=== PATIENT | male | born 1990 | race Two or more races ===

== ENCOUNTER 2024-05-26 02:42 | Inpatient (IN) | payer BC, SELFPAY ==
[2024-05-26] VITALS (7 sets, daily range): BP systolic 134–165; BP diastolic 80–93; PULSE 79–110; RESP 15–19; TEMP 36.7–37.7; O2SAT 96–99; BMI 34.7
--- NOTE | 2024-05-26 02:48 | EKG_ITS ---
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
--- NOTE | 2024-05-26 03:26 | XR_ITS ---
Examination: PA chest single view Technique: Upright PA chest single view Exam date and time: May 26, 2024 0332 hrs. Comparison June 02, 2018 Indications: Left-sided chest pain today. Findings: Left perihilar pneumonia Normal heart size The right lung is clear The osseous structures are intact Impression: Left perihilar pneumonia
[2024-05-26 04:01] LABS: Basophils # (Auto) 0.1 Thou/mm3 (0.0-0.2); Basophils % (Auto) 1 % (0-2.5); Eosinophils # (Auto) 0.2 Thou/mm3 (0.0-0.5); Eosinophils % (Auto) 1 % (0-10); Hematocrit 42.1 % (41.0-53.0); Hemoglobin 14.5 g/dL (13.5-16.0); Immature Granulocytes % (Auto) 1 % (0-0); Immature Granulocytes Auto 0.05 Thou/mm3 (0.00-0.00); Lymphocytes # (Auto) 1.7 Thou/mm3 (1.0-4.8); Lymphocytes % (Auto) 16 % (10-50); Mean Corpuscular HGB Conc 34.4 g/dl (31.0-37.0); Mean Corpuscular Hemoglobin 30.4 pg (25.0-35.0); Mean Corpuscular Volume 88 fL (80-100); Monocytes % (Auto) 9 % (0-12); Neutrophils % (Auto) 73 % (37-80); Nucleated Red Blood Cell % 0 /100 WBC (0); Platelet Count 217 Thou/mm3 (140-440); RDW Standard Deviation 42.7 fL (35.1-43.9); Red Blood Count 4.77 Miln/mm3 (4.50-5.90); White Blood Count 10.9 Thou/mm3 (3.8-10.6)
[2024-05-26 04:20] LABS: D-Dimer < 250 ng/mL (<600)
[2024-05-26 04:28] LABS: Amphetamine/Methamp Scrn,U Negative (Negative); Barbiturate Screen,Urine Negative (Negative); Benzodiazepines Screen,Urine Negative (Negative); Benzoylecgonine Screen, Ur Negative (Negative); Fentanyl Screen,Urine Negative (Negative); Opiate Screen,Urine Negative (Negative); THC Screen,Urine Negative (Negative)
[2024-05-26 04:32] LABS: Alanine Aminotransferase 26 U/L (10-49); Albumin/Globulin Ratio 1.8 (1.2-2.2); Alcohol, Blood Medical 10.4 mg/dL (0-10.0); Alkaline Phosphatase 93 U/L (46-116); Anion Gap 6 (7-16); Aspartate Amino Transferase 22 U/L (0-34); BUN/Creatinine Ratio 13 Ratio (12-20); Bilirubin,Total 0.3 mg/dL (0.3-1.2); Blood Urea Nitrogen 10 mg/dL (9-23); Calcium 9.7 mg/dL (8.3-10.6); Calcium (Corrected) 9.7 mg/dL (8.5-10.1); Carbon Dioxide 27.8 mMol/L (20.0-31.0); Chloride 105 mMol/L (98-107); Creatinine (Component) 0.8 mg/dL (0.6-1.3); Estimated Creatinine Clearance 156.5 mL/min (>60); Globulin 2.8 gm/dL (2.3-3.5); Glucose 100 mg/dL (74-106); Osmolality,Calculated 276 (275-295); Potassium 3.7 mMol/L (3.4-5.1); Sodium 139 mMol/L (136-145); Total Protein 7.8 gm/dL (5.7-8.2); Troponin I < 0.002 ng/mL (0.0-0.045); eGFR > 60 See Note
--- NOTE | 2024-05-26 04:35 | PD.EDRME ---
Rapid Medical Screening Exam RME Arrival date/time: 05/26/24 02:42 34M with history of alcohol use presents to ED with 30 min of CP and SOB. Patient aunt had an IL at <50 years of age so he got worried. Chief Complaint: Chest Pain Time Seen by Provider: 05/26/24 03:07 Vital signs: Vital Signs Temperature 99.8 F 05/26/24 02:49 Pulse Rate 110 H 05/26/24 02:49 Respiratory Rate 18 05/26/24 02:49 Blood Pressure 145/91 H 05/26/24 02:49 Pulse Oximetry (%) 96 05/26/24 02:49 Oxygen Delivery Method Room Air 05/26/24 02:49
--- NOTE | 2024-05-26 05:03 | PD.EDCHEST ---
ED Chest Pain RME/HPI General Chief Complaint: Chest Pain Stated Complaint: CHEST PAIN X40MIN Time Seen by Provider: 05/26/24 03:07 Arrival date/time: 05/26/24 02:42 Limitations: no limitations RME / HPI RME / HPI narrative: 05/26/24 02:42 34M with history of alcohol use presents to ED with 30 min of CP and SOB. Patient aunt had an WA at <50 years of age so he got worried. ---- Dr. Velasquez's Main ED Evaluation: 34yo male with a history of alcohol use presents to the ED for a chief complaint of left-sided chest pain. 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 He reports associated shortness of breath. Patient states he has a familial history of WA and was concerned, so he came in for evaluation. He denies any fever, chills or any other associated symptoms. Onset (ago): unknown Duration: constant Onset: other (Woke him from sleep) Pain location: left chest Severity: mild Severity scale (1-10): 7 Quality: tightness Pain radiation: none Relieving factors: nothing Exacerbating factors: nothing Context: recent illness Associated symptoms: nausea Related Data Allergies Allergy/AdvReac Type Severity Reaction Status Date / Time Penicillins Allergy Severe Rash Verified 05/26/24 02:44 Review of Systems Review of Systems Systems Reviewed: All systems reviewed, normal except as documented Past Medical History Past Medical History CARDIAC: Negative Cardiac Disorders or Congestive Heart Failure RESPIRATORY: Negative Chronic Obstructive Pulmonary Disease (COPD) or Asthma GENITOURINARY: Negative Renal Disease ENDOCRINE: Negative Diabetes Mellitus Type 1 or Diabetes Mellitus Type 2 HEMATOLOGIC: Negative Sickle Cell Disease Social History SMOKING STATUS: Light (< 1 pack/day) ED Exam General Limitations: Present no limitations General appearance: Present alert and in no apparent distress Head Head exam: Present atraumatic Eye Eye exam: Present normal appearance, PERRL and EOMI ENT ENT exam: Present normal exam, normal oropharynx and mucous membranes moist Neck Neck exam: Present normal inspection, full ROM and trachea midline Chest Chest inspection: Present normal inspection and symmetric chest wall rise Respiratory Respiratory exam: Present normal lung sounds bilaterally Cardiovascular Cardiovascular exam: Present regular rate, normal rhythm and normal heart sounds Abdominal Exam Abdominal exam: Present soft and normal bowel sounds Extremities Exam Extremities exam: Present normal inspection and full ROM Back Exam Back exam: Present normal inspection and full ROM Neurological Exam Neurological exam: Present alert, oriented X3 and CN II-XII intact Psychiatric Psychiatric exam: Present normal affect and normal mood Skin Skin exam: Present warm, dry, intact and normal color Course Course Course Narrative: CXR is ordered for determining the etiology of chest pain. Quality Measures none Orders Category Date Time Status CT Screening NOW Care 05/26/24 05:27 Active EKG (ED ONLY) *Do not use* NOW Care 05/26/24 02:[address] chest w con Stat Exams 05/26/24 05:27 Ordered EKG (ED Only) Stat Exams 05/26/24 02:48 Draft XR chest 1V portable Stat Exams 05/26/24 03:26 Taken Alcohol, Blood Medical Stat Lab 05/26/24 03:42 Completed CBC Stat Lab 05/26/24 03:42 Completed Comprehensive Metabolic Panel Stat Lab 05/26/24 03:42 Completed D-Dimer Stat Lab 05/26/24 03:42 Completed Drug Screen,Urine Stat Lab 05/26/24 03:30 Completed Troponin I Stat Lab 05/26/24 03:42 Completed Ketorolac Inj [Toradol Inj] Med 05/26/24 05:05 Discontinued 30 mg IM X1 ONE Vital Signs Vital signs: Vital Signs Temperature 99.8 F 05/26/24 02:49 Pulse Rate 110 H 05/26/24 02:49 Respiratory Rate 18 05/26/24 02:49 Blood Pressure 145/91 H 05/26/24 02:49 Pulse Oximetry (%) 96 05/26/24 02:49 Oxygen Delivery Method Room Air 05/26/24 02:49 Pulse ox is 96% on room air, which is normal according to my interpretation. Chest Pain MDM Narrative MDM Narrative:: Parental diagnosis includes atypical chest pain, pneumonia, PE, STEMI, non-STEMI, musculoskeletal. The patient had a D-dimer that is negative, initial troponin is negative. An EKG is reassuring. Heart rate slightly elevated at 110 however patient is tolerating p.o. Patient has previously been seen here in February for abnormal lymphadenopathy in the throat area with unknown etiology. CT chest to r/o possible CA. Troponin #2 is pending at 630. Patient data External records reviewed:: [facility] previous records (Per chart review, patient was seen here on 07/30/23 for lymphadenopathy.) Clinical information provided by:: patient Social determinants that could affect healthcare access:: alcohol use Patient has the following chronic illnesses:: none How is presenting disease/condition affected by chronic disease/condition?: no chronic disease Evaluation data The following diagnostics were reviewed and interpreted by me:: lab results, radiology exam(s) and EKG tracing(s) Lab and/or radiology exams considered but not ordered:: none Interpretation Summary: WBC count is slightly elevated at 10.9, CMP is normal, troponin is normal, UDS is negative, blood alcohol is 10.4, according to my interpretation. CXR shows poor inspiratory effort, haziness in the left base, no obvious pneumonia, no pleural effusions, increased perihilar infiltrate on the left, according to my interpretation. EKG done at 0256, sinus tachycardia, no ST elevations or depressions, QTc: 433, no previous EKG available for comparison, according to my interpretation. Medications / Prescriptions Medications or Prescriptions considered but not ordered:: none Medication administrations:: Medication Administration History Discontinued Medications Ketorolac Tromethamine (Ketorolac Inj 60 Mg/2 Ml Vial) 30 mg IM X1 ONE Stop: 05/26/24 05:06 Last Admin: 05/26/24 05:11 Dose: 30 mg Documented By: EE see above Consultations Consultation(s) initiated? (list below): No Diagnosis Chest Pain Differential Diagnosis: st elevation myocardial infarction, chest pain and other (PE, NSTEMI, musculoskeletal pain) Most likely diagnosis given after review of the tests above:: final dx pending at sign out Admission Indicated Admission indicated?: not indicated Admission Request Was there a request for admission?: No Disposition Plan Disposition Plan: other (specify) (Signed out to the next oncoming provider at [address] chest and repeat troponin.) Discharge Plan Plan Disposition Comment: Stable at sign out Prescriptions/Referrals Referrals: Thomas Alejandro MD [Primary Care Provider] - In 1 week Problem List Clinical Impression: Atypical chest pain Patient/Caregiver Discharge Instructions Print Language: Ukrainian
[2024-05-26] MEDS: KETOROLAC INJ 60 MG/2 ML VIAL 30 MG IM (05:11)
--- NOTE | 2024-05-26 05:27 | XR_ITS ---
Examination: CT chest with intravenous contrast 2-D sagittal and coronal reconstructions Exam date and time: May 26, 2024 0701 hrs. Indications: Chest pain shortness of breath onset today, history lymphadenopathy CTDI:vol (mGy) 15.3 DLP: (mGycm) 571 Technique: Multiple axial sections of the thorax have been obtained. Sections have been obtained, 3 mm slice thickness. Mediastinal and lung density settings have been obtained. Intravenous contrast administered, 60 cc Isovue-370. 2-D sagittal, coronal images obtained. Low dose protocols were performed. One or more of the following dose reduction techniques were used; automated exposure control, adjustment of the mA and/or KV according to patient size, use of iterative reconstruction technique. Findings: No thoracic aortic aneurysmal dilatation No pulmonary artery emboli on this non-CTA study 23 mm nodule left upper lobe with surrounding parenchymal disease 5 mm pulmonary nodule lingular segment, 2 mm pulmonary nodule lingular segment No pulmonary edema or pleural disease No pneumothorax No paratracheal tracheobronchial or bronchopulmonary adenopathy No visualized liver or splenic lesion Contracted gallbladder No pancreatic or adrenal mass Kidneys partially visualized no hydronephrosis Intact osseous structures Impression: 23 mm nodule left upper lobe with surrounding subtle parenchymal disease, subcentimeter nodules in the left lung Highest on the differential list is infectious processes including active tuberculosis
[2024-05-26 08:25] LABS: Procalcitonin 0.04 ng/ml (0.0-0.49)
--- NOTE | 2024-05-26 08:31 | EDNOTE_ITS ---
Emergency Room Addendum Addendum Narrative: 0600 Care assumed by previous shift provider. Past medical, surgical, social and family history reviewed. Vitals and home medications reviewed. Results and treatment plan discussed. I will assume the care of the patient at this time and will follow the patient, pending final disposition. HPI: Patient was awoken at 4:00 in the morning with pleuritic, sharp, left mid chest pain. He otherwise denies fevers chills or sweats. No night sweats or weight loss. Denies cough or shortness of breath. 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 GENERAL APPEARANCE: AxOx4, generally well-appearing, no acute distress. HEART: Normal rate and regular rhythm, normal S1/S1, no m/r/g LUNGS: CTAB, moving air well. No crackles or wheezes are heard. ABDOMEN: Soft, nontender, nondistended with good bowel sounds heard. NEUROLOGICAL: Grossly nonfocal. Alert and oriented, moving all 4 extremities. CN not formally tested but appear grossly intact. Observed to ambulate with normal gait. Skin: Warm and dry without any rash. CT scan shows a left upper lobe inflammatory nodule suggestive or concerning for active tuberculosis per the radiology. Details are in the note. 0800: Case is discussed with hospitalist service and agrees to admit for rule out tuberculosis. We will cover him for community-acquired pneumonia in the meantime while further tests are being.
--- NOTE | 2024-05-26 08:35 | PC.NURSE ---
Pt was placed in reverse isolation hepa filter in the room and all precautions in place, MD at bedside explained POC pt verbalized understanding
[2024-05-26] MEDS: DOXYCYCLINE 100 MG TABLET PO (08:42)
[2024-05-26] MEDS: cefTRIAXone/D5w 1gm IV premix 50 ML IV (08:43)
--- NOTE | 2024-05-26 09:08 | CHAP ---
Patient expressed gratitude for visit and prayer.
--- NOTE | 2024-05-26 10:49 | PC.NURSE ---
Tubellin med not available in ER pharmacy made aware
--- NOTE | 2024-05-26 13:21 | PC.NURSE ---
Patient complaining of chest pain 02/15. Called and informed hospitalist. Awaiting further orders.
--- NOTE | 2024-05-26 13:38 | ESHP_ITS ---
<Statement entered by Mine Singh MD - 05/26/24 15:28> Patient is 34 y.o male w/ significant PMHx who presented to the ED with sudden onset left-sided chest pain this AM and admitted for further management. 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 Patient also endorses smoking about 1-2 cigs/qweek for the last year intermittently. Chest CT was concerning for a 23 mm nodule in left upper lobe. Patient will be on IV Toradol Q6HR for the pleuritic chest pain. R/o TB via AFB samples Q8HR, Tuberculin skin test, Bcx pending. I discussed with and supervised the phd internship physician who took care of this patient. I personally saw and examined the patient and discussed the assessment and plan with the entire medicine team, including my attending , I agree with most of the assessment and plan as documented below Mine Singh M.D. PGY-2 Documentation for date of: 05/26/24 HPI History of Present Illness Chief complaint: Chest pain History of present illness: 34-year-old male with no significant past medical history presented to the ED after he experienced some chest pain around 2 AM on 05/26 which woke him up from his sleep. Patient states that the pain is in the middle of his chest and slightly to the left and he is never experienced such discomfort before. Patient states that the pain is worse when he takes deep breaths or makes any movements. Patient denies having any concerning cardiac symptoms such as palpitations, shortness of breath, orthopnea, paroxysmal nocturnal dyspnea, lower extremity edema or any new dizziness. Patient follows up with Dr. Alejandro outpatient and states that he does not take any medications; his blood pressure has been sporadically elevated in the clinic but he is only been told to change lifestyle modifications. Of note, patient had upper respiratory infection about a week ago which self resolved without any medications, his child who lives with him was also sick during that time. Patient denies traveling out of the state at this time and denies going hiking or camping out in the [place]. 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 Medical history: No significant history Surgical history: No significant history Allergies: He has been told that he has a penicillin allergy when he was a child, rash Medications: No prescribed medications Family history: Father has elevated blood pressure, maternal had an ID in her 50s (currently alive). 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 Pertinent lab findings include WBC of 10.9, D-dimer less than 250 (normal), troponin negative, urine toxicology negative, ethyl alcohol 10.4. EKG was sinus tachycardia with low voltage but no significant or concerning ST changes. Chest x-ray showed left perihilar pneumonia, CT of chest confirmed a 23 mm nodule in the left upper lobe. Patient will be admitted to the hospitalist team for pleuritic chest pain secondary to possible TB (has some risk factors such as working in custodial system) vs coccidiomycosis vs malignant neoplasm. Exam Vital Signs Temp Pulse Resp BP Pulse Ox O2 Del Method 98.6 F 102 H 16 141/89 H 99 Room Air 05/26/24 10:49 05/26/24 10:50 05/26/24 10:49 05/26/24 10:49 05/26/24 10:49 05/26/24 10:49 Narrative Exam Physical Exam: GENERAL: Awake, answering questions appropriately, appears stated age HEENT: NC/AT. Moist mucosa. PERRLA/EOMI. CARDIO: Heart RRR, no obvious murmurs, no JVD. PULM: No coughing or visible SOB. Lungs CTA B/L. GI: Abdomen soft, NT/ND, +BS. SKIN/MSK/EXT: No wounds/discoloration/rashes/edema/amputations. +Pedal pulses present B/L. NEURO: Oriented x3, construction site manager strength 5/5, Moves extremities x4. Results: Labs 05/26/24 03:42 05/26/24 03:42 Labs: Short CBC 05/26/24 Range/Units 03:42 WBC 10.9 H (3.8-10.6) Thou/mm3 Hgb 14.5 (13.5-16.0) g/dL Hct 42.1 (41.0-53.0) % Plt Count 217 (140-440) Thou/mm3 BMP 05/26/24 03:42 Sodium 139 Potassium 3.7 Chloride 105 Carbon Dioxide 27.8 BUN 10 Creatinine 0.8 Glucose 100 Calcium 9.7 Cardiac Enzymes 05/26/24 Range/Units 03:42 Troponin I < 0.002 (0.0-0.045) ng/mL Liver Function 05/26/24 Range/Units 03:42 Total Bilirubin 0.3 (0.3-1.2) mg/dL AST 22 (0-34) U/L ALT 26 (10-49) U/L Alkaline Phosphatase 93 (46-116) U/L Albumin 5.0 (3.5-5.0) gm/dL Quality Measures Quality Measures none Medications Home Medications and Allergies Home Medications ?Medication ?Instructions ?Recorded ?Confirmed ?Type No Known Home Medications 05/26/24 05/26/24 History Allergies Allergy/AdvReac Type Severity Reaction Status Date / Time Penicillins Allergy Severe Rash Verified 05/26/24 02:44 Visit Medications Acetaminophen (Acetaminophen 325 Mg Tablet) 650 mg PO Q6H PRN PRN Reason: PAIN SCALE 1-3 (mild Stop: 06/25/24 09:37 Ketorolac Tromethamine (Ketorolac Inj 30 Mg/Ml Vial) 30 mg IVP Q6H PRN PRN Reason: Pain 4-8 Stop: 05/31/24 13:30 Ondansetron HCl (Ondansetron Inj 2 Mg/Ml Inj 2 Ml) 4 mg IV Q6H PRN; Protocol PRN Reason: NAUSEA OR VOMITING Stop: 06/25/24 09:37 Sennosides (Senna Tablet) 1 tab PO QDAY PRN; Protocol PRN Reason: constipation Stop: 06/25/24 09:37 Discontinued Medications Doxycycline Hyclate (Doxycycline 100 Mg Tablet) 100 mg PO X1 ONE Stop: 05/26/24 08:07 Last Admin: 05/26/24 08:42 Dose: 100 mg Ceftriaxone Sodium/Dextrose (Rocephin/D5w 1gm Iv Premix) 50 mls @ 100 mls/hr IV X1 ONE Stop: 05/26/24 08:35 Last Infusion: 05/26/24 09:38 Dose: Infused Ketorolac Tromethamine (Ketorolac Inj 60 Mg/2 Ml Vial) 30 mg IM X1 ONE Stop: 05/26/24 05:06 Last Admin: 05/26/24 05:11 Dose: 30 mg Sodium Chloride (Sodium Chloride Rt 10% 15 Ml Nebu) 5 ml INH X1 ONE Stop: 05/26/24 09:41 Tuberculin PPD (Tuberculin Ppd Inj 5 Unit/0.1 Ml Dose) 5 unit ID X1 ONE Stop: 05/26/24 09:41 Assessment & Plan Plan 34-year-old male with no significant past medical history presenting after he experienced some chest pain will be admitted to the hospitalist team for pleuritic chest pain secondary to possible TB (has some risk factors such as working in custodial system) vs coccidiomycosis vs malignant neoplasm. #Pleuritic Chest Pain #Left perihilar PNA #Mild Leukocytosis #Tachycardia #Possible TB infection? #Possible Cocci infection? Patient presented with likely pleuritic chest pain; new finding which started on 05/26 at 2am Troponin negative, EKG with no concerning ST changes Initial chest x-ray showed left perihilar pneumonia Chest CT showed a 23 mm nodule in the left upper lobe; suspicious for possible active TB per radiology read Patient has mildly elevated WBC at 10.9, no fever, heart rate 90?110s likely secondary to pleuritic pain Patient was given x 1 dose of intramuscular Toradol 30 mg with pain being controlled She also was given x 1 dose of ceftriaxone and doxycycline in the ED Patient does have some risk factors for developing TB as 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 Fernández and senior resident Dr. Samantha Rice, PGY-1 Attending Provider Attestation/Addendum I have examined the patient, reviewed labs and imaging findings, discussed the case with the resident(s), and reviewed entered orders. I agree with the plan of care as outlined in this note, with these additional summaries/recommendations: Patient is a 34-year-old male with a medical history of tobacco use who presented to [facility] emergency department on 05/26/2024 with chief complaint of chest pain. CT of chest in the emergency room revealed 23 mm nodule left upper lobe with surrounding subtle parenchymal disease and subcentimeter nodules in the left lung suggestive of infectious process such as tuberculosis. Patient will be admitted for active TB rule out. Obtain AFB smears x 3 and PPD. Order cocci serology. Counseled on tobacco cessation and will give nicotine patch if patient develops withdrawal symptoms. Dr. Fernández
[2024-05-26 13:40] LABS: Cocci Serology, IgM Negative (Negative)
[2024-05-26] MEDS: KETOROLAC INJ 30 MG/ML VIAL IVP ×2 (16:07→22:30)
[2024-05-26] MEDS: TUBERCULIN PPD INJ 5 UNIT/0.1 ML DOSE ID (16:07)
[2024-05-26] MEDS: SODIUM CHLORIDE RT 10% 15 ML NEBU 5 ML INH (18:14)
[2024-05-26 19:53] LABS: Cult AFB Sendout- Sputum* See Sep Rpt
[2024-05-26] MEDS: ACETAMINOPHEN 325 MG TABLET 650 MG PO (20:51)
[2024-05-27] VITALS (8 sets, daily range): BP systolic 132–145; BP diastolic 83–89; PULSE 73–116; RESP 16–26; TEMP 36.1–36.9; O2SAT 93–99; BMI 34.7
[2024-05-27] MEDS: SODIUM CHLORIDE RT 10% 15 ML NEBU INH ×2 (02:24→11:00)
--- NOTE | 2024-05-27 02:43 | PC.RT ---
Pt after hypertonic tx produced an afb sample. This sample 2 of 3
[2024-05-27 03:00] LABS: Cult AFB Sendout- Sputum* See Sep Rpt
[2024-05-27] MEDS: KETOROLAC INJ 30 MG/ML VIAL IVP ×4 (04:14→23:32)
[2024-05-27 06:33] LABS: Basophils % (Auto) 0 % (0-2.5); Eosinophils # (Auto) 0.1 Thou/mm3 (0.0-0.5); Eosinophils % (Auto) 1 % (0-10); Hematocrit 42.5 % (41.0-53.0); Hemoglobin 14.6 g/dL (13.5-16.0); Immature Granulocytes % (Auto) 0 % (0-0); Immature Granulocytes Auto 0.04 Thou/mm3 (0.00-0.00); Lymphocytes # (Auto) 1.2 Thou/mm3 (1.0-4.8); Lymphocytes % (Auto) 11 % (10-50); Mean Corpuscular HGB Conc 34.4 g/dl (31.0-37.0); Mean Corpuscular Hemoglobin 30.2 pg (25.0-35.0); Mean Corpuscular Volume 88 fL (80-100); Monocytes # (Auto) 1.4 Thou/mm3 (0.0-0.8); Monocytes % (Auto) 12 % (0-12); Neutrophils # (Auto) 8.4 Thou/mm3 (1.8-7.7); Neutrophils % (Auto) 75 % (37-80); Nucleated Red Blood Cell % 0 /100 WBC (0); Platelet Count 188 Thou/mm3 (140-440); RDW Standard Deviation 42.8 fL (35.1-43.9); Red Blood Count 4.84 Miln/mm3 (4.50-5.90); White Blood Count 11.2 Thou/mm3 (3.8-10.6)
[2024-05-27 06:58] LABS: Prothrombin Time 10.9 Seconds (9.0-12.2)
[2024-05-27 07:11] LABS: Alanine Aminotransferase 22 U/L (10-49); Albumin, Serum 4.6 gm/dL (3.5-5.0); Albumin/Globulin Ratio 1.7 (1.2-2.2); Alkaline Phosphatase 77 U/L (46-116); Anion Gap 6 (7-16); Aspartate Amino Transferase 20 U/L (0-34); BUN/Creatinine Ratio 13 Ratio (12-20); Bilirubin,Total 0.7 mg/dL (0.3-1.2); Blood Urea Nitrogen 13 mg/dL (9-23); Calcium 9.5 mg/dL (8.3-10.6); Calcium (Corrected) 9.5 mg/dL (8.5-10.1); Carbon Dioxide 25.6 mMol/L (20.0-31.0); Cardiac Risk Estimate 2.6 RATIO (4.0-6.7); Chloride 107 mMol/L (98-107); Cholesterol 153 mg/dL (132-200); Estimated Creatinine Clearance 125.2 mL/min (>60); Globulin 2.7 gm/dL (2.3-3.5); Glucose 104 mg/dL (74-106); HDL Cholesterol 60 mg/dL (40-60); LDL Cholesterol,Calculated 73 mg/dL (0-130); Magnesium 2.2 mg/dL (1.6-2.6); Osmolality,Calculated 277 (275-295); Phosphorous 3.5 mg/dL (2.4-5.1); Potassium 4.2 mMol/L (3.4-5.1); Sodium 139 mMol/L (136-145); Thyroid Stimulating Hormone 1.96 uIU/mL (0.55-4.78); Total Protein 7.3 gm/dL (5.7-8.2); Triglycerides 98 mg/dL (30-150); eGFR > 60 See Note
--- NOTE | 2024-05-27 10:49 | PC.SS ---
Patient alert/oriented. Admitted for TB r/o. Patient is currently in isolation. He resides with family. Independent with ADL's. Employed with [employer]. Notes indicate that AFB were already sent out. Results pending. D/c plan remains to return home. PCP: Dr. Alejandro. is alt medical decision maker. Family to provide transportation upon discharge. No further d/c needs at this time.
[2024-05-27 11:53] LABS: Cult AFB Sendout- Sputum* See Sep Rpt
--- NOTE | 2024-05-27 13:06 | ESPR_ITS ---
<Statement entered by Mine Singh MD - 05/28/24 15:46> Patient seen and examined at bedside. Cocci IgM and IgG negative. AFB smears x 3 and PPD pending. Consider nicotine patch if patient has w/d symptoms. I discussed with and supervised the programming internship physician who took care of this patient. I personally saw and examined the patient and discussed the assessment and plan with the entire medicine team, including my attending Dr. Fernández, I agree with most of the assessment and plan as documented below Mine Singh M.D. PGY-2 Documentation for date of: 05/27/24 Subjective Subjective Interval history: 34-year-old male with no significant past medical history presented to the ED after he experienced some chest pain around 2 AM on 05/26 which woke him up from his sleep. Patient states that the pain is in the middle of his chest and slightly to the left and he is never experienced such discomfort before. Patient states that the pain is worse when he takes deep breaths or makes any movements. Patient denies having any concerning cardiac symptoms such as palpitations, shortness of breath, orthopnea, paroxysmal nocturnal dyspnea, lower extremity edema or any new dizziness. Patient follows up with Dr. Alejandro outpatient and states that he does not take any medications; his blood pressure has been sporadically elevated in the clinic but he is only been told to change lifestyle modifications. Of note, patient had upper respiratory infection about a week ago which self resolved without any medications, his child who lives with him was also sick during that time. Patient denies traveling out of the state at this time and denies going hiking or camping out in the [place]. 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 In the ED, patient presented hypertensive (145/91), tachycardic 110, respiratory rate 18, afebrile satting 96 on room air. Pertinent lab findings include WBC of 10.9, D-dimer less than 250 (normal), troponin negative, urine toxicology negative, ethyl alcohol 10.4. EKG was sinus tachycardia with low voltage but no significant or concerning ST changes. Chest x-ray showed left perihilar pneumonia, CT of chest confirmed a 23 mm nodule in the left upper lobe. Patient will be admitted to the hospitalist team for pleuritic chest pain secondary to possible TB (has some risk factors such as working in [place] [facility]) vs coccidiomycosis vs malignant neoplasm. 05/27: No acute overnight events. Feeling well this morning, improved relative to yesterday. Patient's pleuritic pain is well controlled on Toradol 30mg q6h. Cocci IgM Ab came back negative, IgG antibody and mycobacterial culture pending. Still pending AFB send out and blood cultures. Rocephin started for left perihilar pneumonia found on 05/26 chest xray. Exam Vital Signs Temp Pulse Resp BP Pulse Ox O2 Del Method 97.4 F 89 19 132/83 H 99 Room Air 05/27/24 08:00 05/27/24 11:10 05/27/24 11:10 05/27/24 08:00 05/27/24 11:10 05/27/24 08:00 Narrative Exam Gen: Well-developed and well-nourished. HEENT: NCAT, PERRLA, EOMI, MMM, anicteric conjunctivae. CVS: normal S1 and S2. RRR. No M/R/G. Resp: CTA B/L. No rhonchi, rales, crackles or wheezing. No cough noted, no increased work of breathing or accessory muscle usage. Pleuritic chest pain with deep inspiration Abd: soft, non-tender, non-distended. BS+ in all 4 quadrants. MSK: Good ROM in BUE & BLE. No edema or rash. Neuro: CN II-XII grossly intact. Strength 5/5 in BUE & BLE. Alert and oriented x3. Psych: appropriate mood and affect. Objective Labs 05/28/24 04:21 05/28/24 04:21 Labs: Laboratory Results - last 24 hr 05/26/24 05/27/24 10:03 05:32 WBC 11.2 H RBC 4.84 Hgb 14.6 Hct 42.5 MCV 88 MCH 30.2 MCHC 34.4 RDW Std Deviation 42.8 Plt Count 188 Neut % (Auto) 75 Lymph % (Auto) 11 [place] % (Auto) 12 Eos % (Auto) 1 Baso % (Auto) 0 Neut # (Auto) 8.4 H Lymph # (Auto) 1.2 [place] # (Auto) 1.4 H Eos # (Auto) 0.1 Baso # (Auto) 0.0 Immature Gran # (Auto) 0.04 H Absolute Nucleated RBC 0.00 Immature Gran % 0 Nucleated RBC % 0 PT 10.9 INR 1.0 Sodium 139 Potassium 4.2 D Chloride 107 Carbon Dioxide 25.6 Anion Gap 6 L BUN 13 Creatinine 1.0 Estim Creat Clear Calc 125.2 eGFR > 60 BUN/Creatinine Ratio 13 Glucose 104 Calculated Osmolality 277 Calcium 9.5 Corrected Calcium 9.5 Phosphorus 3.5 Magnesium 2.2 Total Bilirubin 0.7 AST 20 ALT 22 Alkaline Phosphatase 77 Total Protein 7.3 Albumin 4.6 Globulin 2.7 Albumin/Globulin Ratio 1.7 Triglycerides 98 Cholesterol 153 LDL Cholesterol, Calc 73 HDL Cholesterol 60 Cholesterol/HDL Ratio 2.6 L TSH 1.96 Coccidioides IgM Ab Negative Quality Measures Quality Measures none Assessment & Plan Assessment Current Active Medications: Generic Name Dose Route Start Last Admin Trade Name Freq PRN Reason Stop Dose Admin Acetaminophen 650 mg 05/26/24 09:38 05/26/24 20:51 Acetaminophen 325 Mg Tablet PO 06/25/24 09:37 650 mg Q6H PRN Administration PAIN SCALE 1-3 (mild Ceftriaxone Sodium/Dextrose 50 mls @ 100 mls/hr 05/27/24 11:55 Rocephin/D5w 1gm Iv Premix IV 06/03/24 11:54 QDAY LONNIE Ketorolac Tromethamine 30 mg 05/26/24 13:31 05/27/24 10:30 Ketorolac Inj 30 Mg/Ml Vial IVP 05/31/24 13:30 30 mg Q6H PRN Administration Pain 4-8 Ondansetron HCl 4 mg 05/26/24 09:38 Ondansetron Inj 2 Mg/Ml Inj 2 Ml IV 06/25/24 09:37 Q6H PRN NAUSEA OR VOMITING Protocol Sennosides 1 tab 05/26/24 09:38 Senna Tablet PO 06/25/24 09:37 QDAY PRN constipation Protocol Sodium Chloride 15 ml 05/27/24 02:04 05/27/24 11:00 Sodium Chloride Rt 10% 15 Ml Nebu INH 06/26/24 02:03 15 ml DAILY PRN Administration SPUTUM INDUCTION Plan 34-year-old male with no significant past medical history presenting after he experienced some chest pain will be admitted to the hospitalist team for pleuritic chest pain secondary to possible TB (has some risk factors such as working in [place] [facility]) vs coccidiomycosis vs malignant neoplasm. #Pleuritic Chest Pain #Leukocytosis, resolved #Left Upper Lobe Pulmonary Nodule Patient presented with likely pleuritic chest pain; new finding which started on 05/26 at 2am Troponin negative, EKG with no concerning ST changes Initial chest x-ray showed left perihilar pneumonia Chest CT showed a 23 mm nodule in the left upper lobe; suspicious for possible active TB per radiology read Patient has mildly elevated WBC at 10.9, no fever, heart rate 90?110s likely secondary to pleuritic pain Patient was given x 1 dose of intramuscular Toradol 30 mg with pain being controlled She also was given x 1 dose of ceftriaxone and doxycycline in the ED Patient does have some risk factors for developing TB as 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; 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 Plan: - Rule out TB with AFB send out, tuberculin skin test - Cocci IgM negative, pending IgG - Blood cultures pending #Community-Acquired Pneumonia As seen on 05/26 xray in left perihilar region, likely community-acquired pneumonia - Began Rocephin 1g IV qd (Course: 05/27-06/03) - O2 supplementation as needed, currently breathing on room air - No cough noted #Tobacco Dependence Patient apparently smokes a couple cigarettes a week for the past year Plan: - Will monitor for any withdrawal symptoms; and add nicotine patch if needed - 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 Fernández and my seniors Dr. Weiss and Dr. Singh. Juan Min PGY1 JUAQUIN discussed with and supervised the programming internship physician who took care of this patient. I personally saw and examined the patient and discussed the assessment and plan with the entire medicine team, including my attending Dr. Minh Fernández MD. I agree with the assessment and plan as documented above. Patient interviewed and examined at bedside this a.m. In isolation. No acute overnight events reported. Patient notes improvement of his pleuritic chest pain. Cocci serology negative thus far with IgG still pending. Patient still pending AFB x 3 negative, due to finding of 23 mm left-sided pulmonary nodule in the upper lobe. With concern for TB. Wan ceftriaxone was initiated due to a small left sided perihilar pneumonia as evidenced on chest x-ray. Adolfo Weiss M.D. Internal Medicine PGY-3 Attending Provider Attestation/Addendum I have examined the patient, reviewed labs and imaging findings, discussed the case with the resident(s), and reviewed entered orders. I agree with the plan of care as outlined in this note, with these additional summaries/recommendations: Patient is a 34-year-old male with a medical history of tobacco use who presented to [facility] emergency department on 05/26/2024 with chief complaint of chest pain. CT of chest in the emergency room revealed 23 mm nodule left upper lobe with surrounding subtle parenchymal disease and subcentimeter nodules in the left lung suggestive of infectious process such as tuberculosis. Patient admitted for active TB rule out. AFB smears x 3 and PPD pending. Cocci IgM negative and IgG pending. Counseled on tobacco cessation and will give nicotine patch if patient develops withdrawal symptoms. Dr. Fernández
[2024-05-27 13:15] LABS: Cocci Serology, IgG Negative (Negative)
--- NOTE | 2024-05-27 14:22 | PC.RT ---
AFB Sent to lab around 1130am
--- NOTE | 2024-05-27 14:48 | PC.NURSE ---
Pt. is in a negative pressure room since admit to rule out TB.
--- NOTE | 2024-05-27 15:06 | PD.RESPRO ---
Documentation for date of: 05/27/24 Subjective Subjective Interval history: 34-year-old male with no significant past medical history presented to the ED after he experienced some chest pain around 2 AM on 05/26 which woke him up from his sleep. Patient states that the pain is in the middle of his chest and slightly to the left and he is never experienced such discomfort before. Patient states that the pain is worse when he takes deep breaths or makes any movements. Patient denies having any concerning cardiac symptoms such as palpitations, shortness of breath, orthopnea, paroxysmal nocturnal dyspnea, lower extremity edema or any new dizziness. Patient follows up with Dr. Alejandro outpatient and states that he does not take any medications; his blood pressure has been sporadically elevated in the clinic but he is only been told to change lifestyle modifications. Of note, patient had upper respiratory infection about a week ago which self resolved without any medications, his child who lives with him was also sick during that time. Patient denies traveling out of the [facility] at this time and denies going hiking or camping out in the [place]. 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 In the ED, patient presented hypertensive (145/91), tachycardic 110, respiratory rate 18, afebrile satting 96 on room air. Pertinent lab findings include WBC of 10.9, D-dimer less than 250 (normal), troponin negative, urine toxicology negative, ethyl alcohol 10.4. EKG was sinus tachycardia with low voltage but no significant or concerning ST changes. Chest x-ray showed left perihilar pneumonia, CT of chest confirmed a 23 mm nodule in the left upper lobe. 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 Exam Vital Signs Temp Pulse Resp BP Pulse Ox O2 Del Method 96.9 F 97 16 142/89 H 96 Room Air 05/27/24 12:00 05/27/24 12:00 05/27/24 12:00 05/27/24 12:00 05/27/24 12:00 05/27/24 12:00 Objective Labs 05/27/24 05:32 05/27/24 05:32 Labs: Laboratory Results - last 24 hr 05/26/24 05/27/24 10:03 05:32 WBC 11.2 H RBC 4.84 Hgb 14.6 Hct 42.5 MCV 88 MCH 30.2 MCHC 34.4 RDW Std Deviation 42.8 Plt Count 188 Neut % (Auto) 75 Lymph % (Auto) 11 [place] % (Auto) 12 Eos % (Auto) 1 Baso % (Auto) 0 Neut # (Auto) 8.4 H Lymph # (Auto) 1.2 [place] # (Auto) 1.4 H Eos # (Auto) 0.1 Baso # (Auto) 0.0 Immature Gran # (Auto) 0.04 H Absolute Nucleated RBC 0.00 Immature Gran % 0 Nucleated RBC % 0 PT 10.9 INR 1.0 Sodium 139 Potassium 4.2 D Chloride 107 Carbon Dioxide 25.6 Anion Gap 6 L BUN 13 Creatinine 1.0 Estim Creat Clear Calc 125.2 eGFR > 60 BUN/Creatinine Ratio 13 Glucose 104 Calculated Osmolality 277 Calcium 9.5 Corrected Calcium 9.5 Phosphorus 3.5 Magnesium 2.2 Total Bilirubin 0.7 AST 20 ALT 22 Alkaline Phosphatase 77 Total Protein 7.3 Albumin 4.6 Globulin 2.7 Albumin/Globulin Ratio 1.7 Triglycerides 98 Cholesterol 153 LDL Cholesterol, Calc 73 HDL Cholesterol 60 Cholesterol/HDL Ratio 2.6 L TSH 1.96 Coccidioides IgG Ab Negative Quality Measures Quality Measures none Assessment & Plan Assessment Current Active Medications: Generic Name Dose Route Start Last Admin Trade Name Freq PRN Reason Stop Dose Admin Acetaminophen 650 mg 05/26/24 09:38 05/26/24 20:51 Acetaminophen 325 Mg Tablet PO 06/25/24 09:37 650 mg Q6H PRN Administration PAIN SCALE 1-3 (mild Ceftriaxone Sodium/Dextrose 50 mls @ 100 mls/hr 05/27/24 11:55 Rocephin/D5w 1gm Iv Premix IV 06/03/24 11:54 QDAY LONNIE Ketorolac Tromethamine 30 mg 05/26/24 13:31 05/27/24 10:30 Ketorolac Inj 30 Mg/Ml Vial IVP 05/31/24 13:30 30 mg Q6H PRN Administration Pain 4-8 Ondansetron HCl 4 mg 05/26/24 09:38 Ondansetron Inj 2 Mg/Ml Inj 2 Ml IV 06/25/24 09:37 Q6H PRN NAUSEA OR VOMITING Protocol Sennosides 1 tab 05/26/24 09:38 Senna Tablet PO 06/25/24 09:37 QDAY PRN constipation Protocol Sodium Chloride 15 ml 05/27/24 02:04 05/27/24 11:00 Sodium Chloride Rt 10% 15 Ml Nebu INH 06/26/24 02:03 15 ml DAILY PRN Administration SPUTUM INDUCTION
[2024-05-27] MEDS: cefTRIAXone/D5w 1gm IV premix 50 ML IV (15:20)
--- NOTE | 2024-05-27 15:41 | CHAP ---
09:30 AM Visited by spiritual care volunteer Provided prayer for Patient
[2024-05-27] MEDS: ACETAMINOPHEN 325 MG TABLET 650 MG PO (20:11)
[2024-05-28] VITALS (8 sets, daily range): BP systolic 133–156; BP diastolic 85–93; PULSE 63–103; RESP 15–21; TEMP 36.2–37; O2SAT 94–96; BMI 34.7
[2024-05-28 05:28] LABS: Basophils % (Auto) 0 % (0-2.5); Eosinophils # (Auto) 0.2 Thou/mm3 (0.0-0.5); Eosinophils % (Auto) 2 % (0-10); Hematocrit 39.7 % (41.0-53.0); Hemoglobin 13.4 g/dL (13.5-16.0); Immature Granulocytes % (Auto) 0 % (0-0); Immature Granulocytes Auto 0.04 Thou/mm3 (0.00-0.00); Lymphocytes # (Auto) 1.8 Thou/mm3 (1.0-4.8); Lymphocytes % (Auto) 16 % (10-50); Mean Corpuscular HGB Conc 33.8 g/dl (31.0-37.0); Mean Corpuscular Hemoglobin 30.5 pg (25.0-35.0); Mean Corpuscular Volume 90 fL (80-100); Monocytes # (Auto) 1.7 Thou/mm3 (0.0-0.8); Monocytes % (Auto) 15 % (0-12); Neutrophils # (Auto) 7.8 Thou/mm3 (1.8-7.7); Neutrophils % (Auto) 67 % (37-80); Nucleated Red Blood Cell % 0 /100 WBC (0); Platelet Count 197 Thou/mm3 (140-440); White Blood Count 11.6 Thou/mm3 (3.8-10.6)
[2024-05-28 06:42] LABS: Alanine Aminotransferase 21 U/L (10-49); Albumin, Serum 4.4 gm/dL (3.5-5.0); Albumin/Globulin Ratio 1.6 (1.2-2.2); Alkaline Phosphatase 74 U/L (46-116); Anion Gap 7 (7-16); Aspartate Amino Transferase 16 U/L (0-34); BUN/Creatinine Ratio 19 Ratio (12-20); Bilirubin,Total 0.6 mg/dL (0.3-1.2); Blood Urea Nitrogen 17 mg/dL (9-23); Calcium 9.4 mg/dL (8.3-10.6); Calcium (Corrected) 9.4 mg/dL (8.5-10.1); Carbon Dioxide 27.1 mMol/L (20.0-31.0); Chloride 106 mMol/L (98-107); Creatinine (Component) 0.9 mg/dL (0.6-1.3); Estimated Creatinine Clearance 139.1 mL/min (>60); Globulin 2.7 gm/dL (2.3-3.5); Glucose 99 mg/dL (74-106); Osmolality,Calculated 280 (275-295); Sodium 140 mMol/L (136-145); Total Protein 7.1 gm/dL (5.7-8.2); eGFR > 60 See Note
[2024-05-28] MEDS: KETOROLAC INJ 30 MG/ML VIAL IVP ×3 (07:13→20:42)
[2024-05-28] MEDS: cefTRIAXone/D5w 1gm IV premix 50 ML IV (09:25)
--- NOTE | 2024-05-28 14:15 | ESPR_ITS ---
<Statement entered by Mine Singh MD - 05/29/24 05:47> Patient seen and examined at bedside. Pending AFB samples. Cocci IgG and IgM negative. All questions and answered, and denies any complaints at this time. I discussed with and supervised the photography intern physician who took care of this patient. I personally saw and examined the patient and discussed the assessment and plan with the entire medicine team, including my attending , I agree with most of the assessment and plan as documented below Mine Singh M.D. PGY-2 Documentation for date of: 05/28/24 Subjective Subjective Interval history: 34-year-old male with no significant past medical history presented to the ED after he experienced some chest pain around 2 AM on 05/26 which woke him up from his sleep. Patient states that the pain is in the middle of his chest and slightly to the left and he is never experienced such discomfort before. Patient states that the pain is worse when he takes deep breaths or makes any movements. Patient denies having any concerning cardiac symptoms such as palpitations, shortness of breath, orthopnea, paroxysmal nocturnal dyspnea, lower extremity edema or any new dizziness. Patient follows up with Dr. Alejandro outpatient and states that he does not take any medications; his blood pressure has been sporadically elevated in the clinic but he is only been told to change lifestyle modifications. Of note, patient had upper respiratory infection about a week ago which self resolved without any medications, his child who lives with him was also sick during that time. Patient denies traveling out of the state at this time and denies going hiking or camping out in the [place]. 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 In the ED, patient presented hypertensive (145/91), tachycardic 110, respiratory rate 18, afebrile satting 96 on room air. Pertinent lab findings include WBC of 10.9, D-dimer less than 250 (normal), troponin negative, urine toxicology negative, ethyl alcohol 10.4. EKG was sinus tachycardia with low voltage but no significant or concerning ST changes. Chest x-ray showed left perihilar pneumonia, CT of chest confirmed a 23 mm nodule in the left upper lobe. 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 05/27: No acute overnight events. Feeling well this morning, improved relative to yesterday. Patient's pleuritic pain is well controlled on Toradol 30mg q6h. Cocci IgM Ab came back negative, IgG antibody and mycobacterial culture pending. Still pending AFB send out and blood cultures. Rocephin started for possible left perihilar pneumonia found on 05/26 chest xray. 05/28: No acute overnight events. Cocci IgM/IgG both resulted negative. Mycobacterium cultures still pending. Patient remains medically stable, and if tuberculosis testing results as negative, will be safe for discharge afterwards with outpatient follow-up for his pulmonary nodule. Patient continues to have chest pain well-controlled with Toradol 30mg IV q6h prn pain. Exam Vital Signs Temp Pulse Resp BP Pulse Ox O2 Del Method 98.2 F 82 17 133/85 H 96 Room Air 05/28/24 12:00 05/28/24 12:00 05/28/24 12:00 05/28/24 12:00 05/28/24 12:00 05/28/24 12:00 Narrative Exam Gen: Well-developed and well-nourished. HEENT: NCAT, PERRLA, EOMI, MMM, anicteric conjunctivae. CVS: normal S1 and S2. RRR. No M/R/G. Resp: CTA B/L. No rhonchi, rales, crackles or wheezing. Abd: soft, non-tender, non-distended. BS+ in all 4 quadrants. MSK: Good ROM in BUE & BLE. No edema or rash. Neuro: CN II-XII grossly intact. Strength 5/5 in BUE & BLE. Alert and oriented x3. Psych: appropriate mood and affect. Objective Labs 05/29/24 05:14 05/29/24 05:14 Labs: Laboratory Results - last 24 hr 05/28/24 04:21 WBC 11.6 H RBC 4.40 L Hgb 13.4 L Hct 39.7 L MCV 90 MCH 30.5 MCHC 33.8 RDW Std Deviation 44.0 H Plt Count 197 Neut % (Auto) 67 Lymph % (Auto) 16 [place] % (Auto) 15 H Eos % (Auto) 2 Baso % (Auto) 0 Neut # (Auto) 7.8 H Lymph # (Auto) 1.8 [place] # (Auto) 1.7 H Eos # (Auto) 0.2 Baso # (Auto) 0.0 Immature Gran # (Auto) 0.04 H Absolute Nucleated RBC 0.00 Immature Gran % 0 Nucleated RBC % 0 Sodium 140 Potassium 4.0 Chloride 106 Carbon Dioxide 27.1 Anion Gap 7 BUN 17 Creatinine 0.9 Estim Creat Clear Calc 139.1 eGFR > 60 BUN/Creatinine Ratio 19 Glucose 99 Calculated Osmolality 280 Calcium 9.4 Corrected Calcium 9.4 Total Bilirubin 0.6 AST 16 ALT 21 Alkaline Phosphatase 74 Total Protein 7.1 Albumin 4.4 Globulin 2.7 Albumin/Globulin Ratio 1.6 Quality Measures Quality Measures none Assessment & Plan Assessment Current Active Medications: Generic Name Dose Route Start Last Admin Trade Name Freq PRN Reason Stop Dose Admin Acetaminophen 650 mg 05/26/24 09:38 05/27/24 20:11 Acetaminophen 325 Mg Tablet PO 06/25/24 09:37 650 mg Q6H PRN Administration PAIN SCALE 1-3 (mild Ceftriaxone Sodium/Dextrose 50 mls @ 100 mls/hr 05/27/24 11:55 05/28/24 09:25 Rocephin/D5w 1gm Iv Premix IV 06/03/24 11:54 100 mls/hr QDAY LONNIE Administration Ketorolac Tromethamine 30 mg 05/26/24 13:31 05/28/24 07:13 Ketorolac Inj 30 Mg/Ml Vial IVP 05/31/24 13:30 30 mg Q6H PRN Administration Pain 4-8 Ondansetron HCl 4 mg 05/26/24 09:38 Ondansetron Inj 2 Mg/Ml Inj 2 Ml IV 06/25/24 09:37 Q6H PRN NAUSEA OR VOMITING Protocol Sennosides 1 tab 05/26/24 09:38 Senna Tablet PO 06/25/24 09:37 QDAY PRN constipation Protocol Sodium Chloride 15 ml 05/27/24 02:04 05/27/24 11:00 Sodium Chloride Rt 10% 15 Ml Nebu INH 06/26/24 02:03 15 ml DAILY PRN Administration SPUTUM INDUCTION Plan 34-year-old male with no significant past medical history presenting after he experienced some chest pain will be admitted to the hospitalist team for pleuritic chest pain secondary to possible TB (has 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 #Pleuritic Chest Pain #Leukocytosis, resolved #Left Upper Lobe Pulmonary Nodule Patient presented with likely pleuritic chest pain; new finding which started on 05/26 at 2am Troponin negative, EKG with no concerning ST changes Initial chest x-ray showed left perihilar pneumonia Chest CT showed a 23 mm nodule in the left upper lobe; suspicious for possible active TB per radiology read Patient has mildly elevated WBC at 10.9, no fever, heart rate 90?110s likely secondary to pleuritic pain Patient was given x 1 dose of intramuscular Toradol 30 mg with pain being controlled She also was given x 1 dose of ceftriaxone and doxycycline in the ED Patient does have some risk factors for developing TB as 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; 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 Plan: - Pending TB results with AFB send out, tuberculin skin test - Cocci IgM and IgG negative, cocci has been ruled out - Blood cultures negative after 24h #Community-Acquired Pneumonia As seen on 05/26 xray in left perihilar region, likely community-acquired pneumonia - Continue Rocephin 1g IV qd (Course: 05/27-06/03) - O2 supplementation as needed, currently breathing on room air - No cough noted #Tobacco Dependence Patient apparently smokes a couple cigarettes a week for the past year Plan: - Will monitor for any withdrawal symptoms; and add nicotine patch if needed - 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 Fernández and my seniors Dr. Weiss and Dr. Singh. Juan Min PGY1 JUAQUIN discussed with and supervised the photography intern physician who took care of this patient. I personally saw and examined the patient and discussed the assessment and plan with the entire medicine team, including my attending Dr. Minh Fernández MD. I agree with the assessment and plan as documented above. Adolfo Weiss M.D. Internal Medicine PGY-3 Attending Provider Attestation/Addendum I have examined the patient, reviewed labs and imaging findings, discussed the case with the resident(s), and reviewed entered orders. I agree with the plan of care as outlined in this note, with these additional summaries/recommendations: Patient is a 34-year-old male with a medical history of tobacco use who presented to [facility] emergency department on 05/26/2024 with chief complaint of chest pain. CT of chest in the emergency room revealed 23 mm nodule left upper lobe with surrounding subtle parenchymal disease and subcentimeter nodules in the left lung suggestive of infectious process such as tuberculosis. Patient admitted for active TB rule out. AFB smears x 3 and PPD pending. Cocci IgM negative and IgG negative. Continue IV rocephin for possible community acquired pneumonia. Counseled on tobacco cessation and will give nicotine patch if patient develops withdrawal symptoms. Dr. Fernández
[2024-05-28] MEDS: guaiFENesin/P-EPHED TABLET 1 TAB PO (19:37)
[2024-05-29] VITALS: BP 128/89; PULSE 84; RESP 21; TEMP 36.5; O2SAT 96
[2024-05-29 01:10] VITALS: PULSE 80
[2024-05-29] MEDS: KETOROLAC INJ 30 MG/ML VIAL IVP ×2 (03:11→10:02)
[2024-05-29 04:00] VITALS: BP 127/88; PULSE 80; PULSE 83; RESP 20; TEMP 36.4; O2SAT 96
[2024-05-29 06:00] VITALS: BMI 34.7
[2024-05-29 06:03] LABS: Basophils % (Auto) 0 % (0-2.5); Eosinophils # (Auto) 0.2 Thou/mm3 (0.0-0.5); Eosinophils % (Auto) 2 % (0-10); Hemoglobin 12.7 g/dL (13.5-16.0); Immature Granulocytes % (Auto) 0 % (0-0); Immature Granulocytes Auto 0.03 Thou/mm3 (0.00-0.00); Lymphocytes # (Auto) 1.5 Thou/mm3 (1.0-4.8); Lymphocytes % (Auto) 15 % (10-50); Mean Corpuscular HGB Conc 33.4 g/dl (31.0-37.0); Mean Corpuscular Hemoglobin 30.1 pg (25.0-35.0); Mean Corpuscular Volume 90 fL (80-100); Monocytes # (Auto) 1.2 Thou/mm3 (0.0-0.8); Monocytes % (Auto) 13 % (0-12); Neutrophils # (Auto) 6.7 Thou/mm3 (1.8-7.7); Neutrophils % (Auto) 69 % (37-80); Nucleated Red Blood Cell % 0 /100 WBC (0); Platelet Count 214 Thou/mm3 (140-440); RDW Standard Deviation 42.8 fL (35.1-43.9); Red Blood Count 4.22 Miln/mm3 (4.50-5.90); White Blood Count 9.7 Thou/mm3 (3.8-10.6)
[2024-05-29 06:48] LABS: Alanine Aminotransferase 30 U/L (10-49); Albumin, Serum 4.2 gm/dL (3.5-5.0); Albumin/Globulin Ratio 1.5 (1.2-2.2); Alkaline Phosphatase 73 U/L (46-116); Anion Gap 6 (7-16); Aspartate Amino Transferase 16 U/L (0-34); BUN/Creatinine Ratio 16 Ratio (12-20); Bilirubin,Total 0.6 mg/dL (0.3-1.2); Blood Urea Nitrogen 13 mg/dL (9-23); Chloride 106 mMol/L (98-107); Creatinine (Component) 0.8 mg/dL (0.6-1.3); Estimated Creatinine Clearance 156.5 mL/min (>60); Globulin 2.8 gm/dL (2.3-3.5); Glucose 103 mg/dL (74-106); Osmolality,Calculated 275 (275-295); Potassium 3.8 mMol/L (3.4-5.1); Sodium 138 mMol/L (136-145); eGFR > 60 See Note
[2024-05-29 08:00] VITALS: BP 136/94; PULSE 84; PULSE 85; RESP 18; TEMP 36.1; O2SAT 96
[2024-05-29] MEDS: cefTRIAXone/D5w 1gm IV premix 50 ML IV (09:58)
[2024-05-29 12:00] VITALS: BP 132/32; PULSE 104; PULSE 89; RESP 18; TEMP 36.1; O2SAT 96
[2024-05-29] MEDS: AZITHROMYCIN INJ 250 MG in SODIUM CHLORIDE 0.9% 250 ML 250 ML IV (13:43)
[2024-05-29 13:59] VITALS: BMI 34.8
--- NOTE | 2024-05-29 14:25 | ESDS_ITS ---
<Statement entered by Mine Singh MD - 05/30/24 18:47> I discussed with and supervised the physician general internal medicine physician who took care of this patient. I personally saw and examined the patient and discussed the assessment and plan with the entire medicine team, including my attending , I agree with most of the assessment and plan as documented below Mine Singh M.D. PGY-2 Planned Discharge Date 05/29/24 DS: Providers Provider Date of admission: 05/26/24 09:38 Primary care physician: Thomas Alejandro MD Admitting Provider: Minh Fernández MD Attending Provider on Admission: Minh Fernández MD Attending Provider on DC: Minh Fernández MD Discharging Provider: Juan Min DO DS: Diagnosis Problem List Completed Was Problem List Reviewed/Reconciled?: Yes Hospital Course Hospital Course Hospital course: Mr. Naresh Louis is a 34y/o male with no past medical history who was admitted on 05/26/2024 for chest pain that woke him up from his sleep, stating that this pain was worse with deep breaths, and that he has no history of cardiac or pulmonary conditions. A cardiac workup was performed for this patient demonstrating a normal D-dimer, negative troponins, and no ST changes on EKG, although chest xray was positive for left perihilar pneumonia, and CT chest was positive for a 23mm nodule in the left upper lobe. Patient had tuberculosis and coccidioides testing performed, both of which resulted as negative, and his mild leukocytosis resolved during his stay in the hospital. IV antibiotics were started for patient's left-sided pneumonia, and he was transitioned to oral antibiotics upon discharge. He was also monitored for signs of tobacco and nicotine withdrawal during his stay. On 05/29/2024, patient was deemed medically clear for discharge with instructions to continue his oral azithromycin for five more days, and to follow up with his PCP for further workup of his left upper lobe pulmonary nodule. DISCHARGE INSTRUCTIONS: - Please follow up with your PCP within 1 week. If you do not have a PCP, please make an appointment with the [facility] at [phone]. Have your PCP monitor for your nodule with repeat imaging. - Please take Azithromycin 250mg once daily for five days. #Pleuritic Chest Pain #Leukocytosis #Left Upper Lobe Pulmonary Nodule #Community-Acquired Pneumonia #Tobacco Dependence Status at Discharge Overall status at discharge: patient is progressing back to baseline Time Spent with Patient Time attestation: Total time spent providing and/or coordinating discharge services: Time spent: Greater than 30 minutes Exam Vital Signs Temp Pulse Resp BP Pulse Ox O2 Del Method 97.0 F 89 18 132/32 H 96 Room Air 05/29/24 12:00 05/29/24 12:00 05/29/24 12:00 05/29/24 12:00 05/29/24 12:00 05/29/24 12:00 Narrative Exam Gen: Well-developed and well-nourished. HEENT: NCAT, PERRLA, EOMI, MMM, anicteric conjunctivae. CVS: normal S1 and S2. RRR. No M/R/G. Resp: CTA B/L. No rhonchi, rales, crackles or wheezing. Abd: soft, non-tender, non-distended. BS+ in all 4 quadrants. MSK: Good ROM in BUE & BLE. No edema or rash. Neuro: CN II-XII grossly intact. Strength 5/5 in BUE & BLE. Alert and oriented x3. Psych: appropriate mood and affect. Discharge Plan Plan Patient Disposition: HOME (Self Care) Disposition Comment: Stable at sign out Prescriptions/Referrals Prescriptions/Med Rec: New azithromycin 250 mg tablet 250 mg PO QDAY 5 Days Qty: 5 0RF Referrals: Thomas Alejandro MD [Primary Care Provider] - Patient/Caregiver Discharge Instructions Other Discharge Activity Instructions:: Please follow up with Dr Alejandro within 1 week. Your pulmonary nodule will need to be monitored with repeat imaging. Please take Azithromycin 250mg once daily for five days. Education Materials: Preventing Pneumonia, Treating Pneumonia, When You Have Pneumonia, ED Pulmonary Nodule, Solitary Print Language: Algerian Stand Alone Forms: Gladys Award Info., Patient Portal Info Letter Discharge Order Discharge Orders: Discharge (Routine); Ordered 05/29/24 Ordered By: Mine Singh Quality Discharge Quality Measures VTE prophylaxis Attestestation MD Attestation I have examined the patient, reviewed labs and imaging findings, discussed the case with the resident(s), and reviewed entered orders. I agree with the plan of care as outlined in this note. Dr. Fernández
--- NOTE | 2024-05-29 14:33 | PC.IP ---
3 negative AFBs. Pt. may be removed from Airborne Precautions.
--- NOTE | 2024-05-29 14:43 | PC.SS ---
Rounding note: Patient now has 3 AFB's back negative. D/c home today
== END 2024-05-29 15:35 | disposition home or self-care (01) | DRG 195 ==
LOC: SERX 06:25 → SERHOLD 09:56 → S2NX 20:07 → S3NX 23:39
PROVIDERS: Physician Assistant; Admitting Provider Student in an Organized Health Care Education/Training Program; Emergency Provider Emergency Medicine; PCP Internal Medicine; Visit Provider Student in an Organized Health Care Education/Training Program
DX: J18.9 Pneumonia, unspecified organism (principal); F17.210 Nicotine dependence, cigarettes, uncomplicated; R91.1 Solitary pulmonary nodule
CPT/HCPCS: 36415; 71045; 71260; 80053; 80061; 80307; 80320; 83735; 84100; 84145; 84443; 84484; 85025; 85379; 85610; 86331; 86635; 87015; 87040; 87116; 87206; 89220; 93005; 93225; 94640; 96365; 96372; 99285; A4649; J0456; J0696; J1885; J7050; Q9967; A9270; G0480

== ENCOUNTER 2024-06-06 12:47 | Inpatient (IN) | payer BC, SELFPAY ==
[2024-06-06] VITALS (11 sets, daily range): BP systolic 133–143; BP diastolic 87–94; PULSE 92–109; RESP 19–96; TEMP 37.2–38.8; O2SAT 92–96; BMI 34.5; BMI 33.4
--- NOTE | 2024-06-06 13:41 | EKG_ITS ---
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
--- NOTE | 2024-06-06 13:43 | XR_ITS ---
Examination: PA lateral chest 2 views Technique: Upright PA lateral chest 2 views Exam date and time: June 06, 2024 at 1404 hrs. Comparison May 26, 2024 Indications: Shortness of breath 2 days Findings: Marked worsening left lung pneumonia, now diffuse Right lung clear Normal heart size Impression: Worsening severe left lung pneumonia
--- NOTE | 2024-06-06 13:44 | PD.EDSOB ---
ED SOB =RME/HPI General Chief Complaint: Shortness of Breath/Dyspnea Stated Complaint: SHORTNESS OF BREATH WITH COUGH, RECENTLY ADMITTED Time Seen by Provider: 06/06/24 12:53 Arrival date/time: 06/06/24 12:47 RME / HPI RME / HPI Narrative: 34-year-old male patient was recently admitted for pneumonia, about 2 weeks ago, came in for evaluation regarding worsening shortness of breath. Patient told me that his been having worsening shortness of breath, dyspnea on exertion, walking several meters, he had to stop due to shortness of breath. Patient also was noted to be slightly pale than usual according to the . Denies any chest pain. Still having cough nonproductive. Patient told me that he completed Zithromax that was prescribed after the patient was discharge. Last dose was taken last week. Denies any other complaints. Related Data Home Medications ?Medication ?Instructions ?Recorded ?Confirmed No Known Home Medications 06/06/24 06/06/24 Allergies Allergy/AdvReac Type Severity Reaction Status Date / Time Penicillins Allergy Severe Rash Verified 05/26/24 02:44 Review of Systems Review of Systems Narrative Review of Systems: Review of system reviewed and within normal limits except mentioned in HPI ED Exam Narrative Physical exam: VITAL SIGNS: Reviewed. GENERAL APPEARANCE: Alert and interactive, follows commands, no acute distress, HEAD AND FACE: Non-traumatic. ENT: PERRL, pink conjunctivitis, eyelid no trauma, Mucous membrane moist. NECK: Supple, nontender, no nuchal rigidity. CHEST: No tenderness, no crepitus, no paradoxical movement, no retractions. LUNGS: Clear, well ventilated, symmetric, no rales, no wheezing, no ronchi, no stridor, good breath sounds bilaterally. HEART: Regular rate, regular rhythm, no murmur, no gallops. ABDOMEN: Soft, positive bowel sounds, nondistended, no guarding, nontender, no rebound, no masses, RECTAL: Deferred. GENITAL: Deferred. NEUROLOGICAL: Gross motor function intact sensory function intact, Appropriate for age. MUSCULOSKELETAL: low back nontender, full range of motion. EXTREMITIES: Nontender, full range of motion. SKIN: Color pink, dry, no rash, no lacerations, no abrasions, no contusions. LYMPHATICS: Deferred. Course Quality Measures none Orders Category Date Time Status COVID-19 Screening Questionnaire NOW Care 06/06/24 15:33 Active Decision to Admit X1 Care 06/06/24 15:33 Completed EKG (ED ONLY) *Do not use* NOW Care 06/06/24 13:41 Completed EKG (ED Only) Stat Exams 06/06/24 13:41 Draft XR chest 2V Stat Exams 06/06/24 13:43 Completed B-Type Natriuretic Peptide Stat Lab 06/06/24 13:59 Completed Blood Culture (Lab) Stat Lab 06/06/24 15:38 Received CBC Stat Lab 06/06/24 13:59 Completed Comprehensive Metabolic Panel Stat Lab 06/06/24 13:59 Completed Partial Thromboplastin Time Stat Lab 06/06/24 13:59 Completed Procalcitonin Stat Lab 06/06/24 15:30 Completed Prothrombin Time with INR Stat Lab 06/06/24 13:59 Completed Troponin I Stat Lab 06/06/24 13:59 Completed cefTRIAXone/D5w 1gm IV premix [Rocephin/D5w 1gm IV Med 06/06/24 15:29 Discontinued premix] 50 ml IV X1 Vital Signs Vital signs: Vital Signs Temperature 99.9 F 06/06/24 13:34 Pulse Rate 109 H 06/06/24 13:34 Respiratory Rate 19 06/06/24 13:34 Blood Pressure 143/88 H 06/06/24 13:34 Pulse Oximetry (%) 94 L 06/06/24 13:34 Oxygen Delivery Method Room Air 06/06/24 13:34 Shortness of Breath / Dyspnea MDM Narrative MDM Narrative:: 34-year-old male patient was recently admitted for pneumonia, about 2 weeks ago, came in for evaluation regarding worsening shortness of breath. Patient told me that his been having worsening shortness of breath, dyspnea on exertion, walking several meters, he had to stop due to shortness of breath. Patient also was noted to be slightly pale than usual according to the . Denies any chest pain. Still having cough nonproductive. Patient told me that he completed Zithromax that was prescribed after the patient was discharge. Last dose was taken last week. Denies any other complaints. Patient's chest x-ray showed worsening pneumonia. Patient was also noted to have leukocytosis of 12,000. Plan of care discussed with the patient and agrees to be admitted. Spoke with hospitalist, who admitted the patient. Patient data External records reviewed:: None Clinical information provided by:: none Social determinants that could affect healthcare access:: none Patient has the following chronic illnesses:: None How is presenting disease/condition affected by chronic disease/condition?: no chronic disease Evaluation data The following diagnostics were reviewed and interpreted by me:: lab results and radiology exam(s) Lab and/or radiology exams considered but not ordered:: None Interpretation Summary: Laboratory workup is significant for worsening pneumonia based on x-ray as compared 9 days ago. Was also noted to have a slight leukocytosis of 12.3. EKG showed sinus tachycardia, ventricular to 101 bpm, no ST segment elevation or depression noted. Medications / Prescriptions Medications or Prescriptions considered but not ordered:: None Medication administrations:: Medication Administration History Acetaminophen (Acetaminophen 325 Mg Tablet) 650 mg PO Q6H PRN PRN Reason: Fever >100.3 or pain Stop: 07/06/24 16:27 Last Admin: 06/06/24 17:13 Dose: 650 mg Documented By: ER Albuterol/Ipratropium (Albuterol/Ipratropium (Duoneb) Rt Veena 3 Ml Nebu) 3 ml INH Q6HRRT PRN PRN Reason: SHORTNESS OF BREATH Stop: 07/06/24 18:59 Benzonatate (Benzonatate 100 Mg Capsule) 200 mg PO TID LONNIE; Protocol Stop: 07/06/24 21:59 Heparin Sodium (Porcine) (Heparin Sod Inj 5000 Unit/Ml Vial) 5,000 unit SC Q12HR LONNIE Stop: 06/20/24 20:59 Cefepime HCl 1 gm/ Sodium (Chloride) 50 mls @ 100 mls/hr IV Q12HR [facility] Stop: 06/13/24 16:39 Last Admin: 06/06/24 17:18 Dose: 100 mls/hr Documented By: ER Ondansetron HCl (Ondansetron Inj 2 Mg/Ml Inj 2 Ml) 4 mg IV Q6H PRN; Protocol PRN Reason: NAUSEA OR VOMITING Stop: 07/06/24 16:27 Pharmacy Consult (Vancomycin Pharmacy To Dose 1 Each Each) 1 each IV QDAY PRN PRN Reason: CONSULT Stop: 07/06/24 16:44 Discontinued Medications Albuterol (Albuterol Inh 8 Gm) 2 puff INH QDAY PRN PRN Reason: cough Stop: 07/07/24 08:59 Ceftriaxone Sodium/Dextrose (Rocephin/D5w 1gm Iv Premix) 50 mls @ 100 mls/hr IV X1 ONE Stop: 06/06/24 15:58 Last Infusion: 06/06/24 17:10 Dose: Infused Documented By: Admin: 06/06/24 16:38 Dose: 100 mls/hr Documented By: ER Vancomycin HCl/Dextrose (Vancomycin/D5w 1,250 Mg Ivpb) 250 mls @ 120 mls/hr IV X1 ONE Stop: 06/06/24 18:49 Last Admin: 06/06/24 18:04 Dose: 120 mls/hr Documented By: [email or web address] Comments: phramacy brought it this time Sodium Chloride (Ns) 1,000 mls @ 999 mls/hr IV .Q1H1M ONE Stop: 06/06/24 17:48 Last Admin: 06/06/24 17:14 Dose: 999 mls/hr Documented By: ER Sodium Chloride (Sodium Chloride Rt 10% 15 Ml Nebu) 5 ml INH X1 ONE Stop: 06/06/24 16:29 Ceftriaxone IV Consultations Consultation(s) initiated? (list below): No Diagnosis Shortness of Breath Differential Diagnosis: acute exacerbation of chronic obstructive airways disease, congestive heart failure and community acquired pneumonia Most likely diagnosis given after review of the tests above:: Pneumonia Admission Indicated Admission indicated?: indicated Admission Request Was there a request for admission?: Yes Admission Attestation Admission request attestation: Discussed case with [Dr. Nassar] from Hospitalist service regarding admission. Discussed patients ED course, exam findings, labs, and radiology results. The Hospitalist [agrees] to accept the patient for admission. Disposition Plan Disposition Plan: Admit Discharge Plan Plan Patient Disposition: Admit Acute Care w/in Hospital Problem List Clinical Impression: Pneumonia Patient/Caregiver Discharge Instructions Discharge Activity: activity as tolerated
[2024-06-06 14:07] LABS: Basophils % (Auto) 0 % (0-2.5); Eosinophils # (Auto) 0.2 Thou/mm3 (0.0-0.5); Eosinophils % (Auto) 2 % (0-10); Hematocrit 37.1 % (41.0-53.0); Hemoglobin 12.7 g/dL (13.5-16.0); Immature Granulocytes % (Auto) 0 % (0-0); Immature Granulocytes Auto 0.05 Thou/mm3 (0.00-0.00); Lymphocytes # (Auto) 0.9 Thou/mm3 (1.0-4.8); Lymphocytes % (Auto) 8 % (10-50); Mean Corpuscular HGB Conc 34.2 g/dl (31.0-37.0); Mean Corpuscular Hemoglobin 29.7 pg (25.0-35.0); Mean Corpuscular Volume 87 fL (80-100); Monocytes # (Auto) 1.1 Thou/mm3 (0.0-0.8); Monocytes % (Auto) 9 % (0-12); Neutrophils # (Auto) 9.9 Thou/mm3 (1.8-7.7); Neutrophils % (Auto) 81 % (37-80); Nucleated Red Blood Cell % 0 /100 WBC (0); Platelet Count 305 Thou/mm3 (140-440); Red Blood Count 4.28 Miln/mm3 (4.50-5.90); White Blood Count 12.3 Thou/mm3 (3.8-10.6)
[2024-06-06 14:22] LABS: INR 1.2 (0.9-1.3); Partial Thromboplastin Time 33.9 Seconds (22.0-36.0); Prothrombin Time 13.2 Seconds (9.0-12.2)
[2024-06-06 14:32] LABS: Alanine Aminotransferase 21 U/L (10-49); Albumin/Globulin Ratio 1.1 (1.2-2.2); Alkaline Phosphatase 87 U/L (46-116); Anion Gap 8 (7-16); Aspartate Amino Transferase 18 U/L (0-34); B-Type Natriuretic Peptide 26 pg/mL (0-100); BUN/Creatinine Ratio 10 Ratio (12-20); Bilirubin,Total 0.4 mg/dL (0.3-1.2); Blood Urea Nitrogen 8 mg/dL (9-23); Carbon Dioxide 24.2 mMol/L (20.0-31.0); Chloride 105 mMol/L (98-107); Creatinine (Component) 0.8 mg/dL (0.6-1.3); Estimated Creatinine Clearance 156.2 mL/min (>60); Globulin 3.5 gm/dL (2.3-3.5); Glucose 111 mg/dL (74-106); Osmolality,Calculated 273 (275-295); Potassium 3.4 mMol/L (3.4-5.1); Sodium 137 mMol/L (136-145); Total Protein 7.5 gm/dL (5.7-8.2); Troponin I < 0.002 ng/mL (0.0-0.045); eGFR > 60 See Note
[2024-06-06 16:15] LABS: Procalcitonin 0.47 ng/ml (0.0-0.49)
[2024-06-06] MEDS: cefTRIAXone/D5w 1gm IV premix 50 ML IV (16:38)
[2024-06-06] MEDS: ACETAMINOPHEN 325 MG TABLET 650 MG PO ×3 (17:13→23:43)
[2024-06-06] MEDS: SODIUM CHLORIDE 0.9% 1000 ML 1,000 ML 999 ML IV (17:14)
[2024-06-06] MEDS: CEFEPIME INJ 1 GM in SODIUM CHLORIDE 0.9% (P) 50 ML IV ×2 (17:18→21:19)
[2024-06-06 17:26] LABS: HIV (1&2) Antibody Rapid Non-Reactive
[2024-06-06] MEDS: VANCOMYCIN/D5W 1,250 MG IVPB 250 ML 120 MG IV (18:04)
--- NOTE | 2024-06-06 19:14 | PC.NURSE ---
notified doctor negrita of patients fever 100.8 despite previous tylenol administration. Provider states he will place an order for an additional dose of tylenol.
--- NOTE | 2024-06-06 19:29 | PD.RESHP ---
Documentation for date of: 06/06/24 HPI History of Present Illness Chief complaint: cough, SOB History of present illness: Naresh Louis is 34 yr male with no significant past medical history who was presented to the ED today due to worsening shortness of breath and cough. Patient was recently discharged about 1 week ago after being treated for community-acquired pneumonia. Patient states that he completed his course of azithromycin last week. However, he is now experiencing worsening symptoms. Having difficulty in speaking because of the dry cough, difficulty in daily activities which is worsening with shortness of breath, no chest pain, no fever, no recent travel, no known sick contacts. Patient denies having any concerning cardiac symptoms such as palpitations, shortness of breath, orthopnea, paroxysmal nocturnal dyspnea, lower extremity edema or any new dizziness. PCP Dr. Alejandro had no availability to schedule patient for follow up. In ED, vitals significant for hypertension 143/88, tachycardia 109, respiratory rate 19, afebrile, 94% oxygenation on room air. Labs revealing mild leukocytosis WBC 12.3, mild anemia 12.7, borderline low potassium 3.4, sodium 137, creatinine 0.8. Diagnostic imaging: EKG showed no acute ischemic changes, sinus tachycardia rate 101. Chest x-ray showed marked worsening of left lung pneumonia. Given x 1 dose ceftriaxone, acetaminophen 650 mg for pain, 1 L bolus normal saline. Patient admitted for sepsis 2/2 HAP vs CAP. Medical history: No significant history Surgical history: No significant history Family history: Father has elevated blood pressure, maternal had an LA in her 50s (currently alive). 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 No acute distress, cooperative HEENT: Atraumatic, normocephalic. No JVD noted. Mucosa moist. Cardiovascular: Normal S1 and S2. Regular rate and rhythm. No pitting edema Respiratory: Lungs are clear to auscultation bilaterally except for wheezing auscultated in LLL. Abdomen: Soft, nontender, not distended, normal bowel sounds. Skin: Warm to touch, dry, no rashes noted Musculoskeletal: No gross injuries. Able to move all 4 extremities. Neuro: Alert and oriented x3. No focal neuro deficits. Psych: Normal affect and mood Results: Labs 06/07/24 05:03 06/07/24 05:03 Labs: Short CBC 06/06/24 Range/Units 13:59 WBC 12.3 H (3.8-10.6) Thou/mm3 Hgb 12.7 L (13.5-16.0) g/dL Hct 37.1 L (41.0-53.0) % Plt Count 305 D (140-440) Thou/mm3 BMP 06/06/24 13:59 Sodium 137 Potassium 3.4 Chloride 105 Carbon Dioxide 24.2 BUN 8 L Creatinine 0.8 Glucose 111 H Calcium 9.0 Cardiac Enzymes 06/06/24 Range/Units 13:59 Troponin I < 0.002 (0.0-0.045) ng/mL Liver Function 06/06/24 Range/Units 13:59 Total Bilirubin 0.4 (0.3-1.2) mg/dL AST 18 (0-34) U/L ALT 21 (10-49) U/L Alkaline Phosphatase 87 (46-116) U/L Albumin 4.0 (3.5-5.0) gm/dL Quality Measures Quality Measures none Medications Home Medications and Allergies Home Medications ?Medication ?Instructions ?Recorded ?Confirmed ?Type No Known Home Medications 06/06/24 06/06/24 History Allergies Allergy/AdvReac Type Severity Reaction Status Date / Time Penicillins Allergy Severe Rash Verified 05/26/24 02:44 Visit Medications Acetaminophen (Acetaminophen 325 Mg Tablet) 650 mg PO Q6H PRN PRN Reason: Fever >100.3 or pain Stop: 07/06/24 16:27 Last Admin: 06/06/24 17:13 Dose: 650 mg Albuterol/Ipratropium (Albuterol/Ipratropium (Duoneb) Rt Veena 3 Ml Nebu) 3 ml INH Q6HRRT PRN PRN Reason: SHORTNESS OF BREATH Stop: 07/06/24 18:59 Benzonatate (Benzonatate 100 Mg Capsule) 200 mg PO TID LONNIE; Protocol Stop: 07/06/24 21:59 Heparin Sodium (Porcine) (Heparin Sod Inj 5000 Unit/Ml Vial) 5,000 unit SC Q12HR LONNIE Stop: 06/20/24 20:59 Cefepime HCl 1 gm/ Sodium (Chloride) 50 mls @ 100 mls/hr IV Q12HR LONNIE Stop: 06/13/24 16:39 Last Admin: 06/06/24 17:18 Dose: 100 mls/hr Ondansetron HCl (Ondansetron Inj 2 Mg/Ml Inj 2 Ml) 4 mg IV Q6H PRN; Protocol PRN Reason: NAUSEA OR VOMITING Stop: 07/06/24 16:27 Pharmacy Consult (Vancomycin Pharmacy To Dose 1 Each Each) 1 each IV QDAY PRN PRN Reason: CONSULT Stop: 07/06/24 16:44 Discontinued Medications Acetaminophen (Acetaminophen 325 Mg Tablet) 650 mg PO X1 ONE Stop: 06/06/24 19:16 Last Admin: 06/06/24 19:19 Dose: 650 mg Albuterol (Albuterol Inh 8 Gm) 2 puff INH QDAY PRN PRN Reason: cough Stop: 07/07/24 08:59 Ceftriaxone Sodium/Dextrose (Rocephin/D5w 1gm Iv Premix) 50 mls @ 100 mls/hr IV X1 ONE Stop: 06/06/24 15:58 Last Infusion: 06/06/24 17:10 Dose: Infused Vancomycin HCl/Dextrose (Vancomycin/D5w 1,250 Mg Ivpb) 250 mls @ 120 mls/hr IV X1 ONE Stop: 06/06/24 18:49 Last Admin: 06/06/24 18:04 Dose: 120 mls/hr Sodium Chloride (Ns) 1,000 mls @ 999 mls/hr IV .Q1H1M ONE Stop: 06/06/24 17:48 Last Admin: 06/06/24 17:14 Dose: 999 mls/hr Sodium Chloride (Sodium Chloride Rt 10% 15 Ml Nebu) 5 ml INH X1 ONE Stop: 06/06/24 16:29 Assessment & Plan Plan Naresh Louis is 34 yr male with no significant past medical history who was presented to the ED today due to worsening shortness of breath and cough. Patient was recently discharged about 1 week ago after being treated for community-acquired pneumonia. Patient states that he completed his course of azithromycin last week. However, he is now experiencing worsening symptoms. Having difficulty in speaking because of the dry cough, difficulty in daily activities which is worsening with shortness of breath, no chest pain, no fever, no recent travel, no known sick contacts. Patient denies having any concerning cardiac symptoms such as palpitations, shortness of breath, orthopnea, paroxysmal nocturnal dyspnea, lower extremity edema or any new dizziness. PCP Dr. Alejandro had no availability to schedule patient for follow up. Patient admitted for sepsis 2/2 HAP vs CAP. #Sepsis 2/2 HAP vs CAP SIRS 2/4--tachy + mild leukocytosis WBC 12.3 Previous admission patient was treated for community-acquired pneumonia and discharged with azithromycin course completion last week. Readmission now due to worsening symptoms and chest x-ray showing worsening left-sided pneumonia. Possibility of hospital-acquired pneumonia organisms and MRSA vs MSSA vs Pseudomonas. Possibility community-acquired pneumonia with strep pneumo vs haemophilus influenza. Atypicals Mycoplasma, legionella, Virus. Previous TB and cocci are negative. -s/p 1L bolus NS -cefepime q12hr -Vancomycin -DuoNeb PRN -oxygen PRN -Tessalon pearls 200 PO TID -sputum culture pending -blood culture pending -MRSA nasal screen pending -HIV screen pending #Tachycardia -monitoring in setting of sepsis. 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 Nassar and Dr. Hasmukh Amato, PGY-1 Attending Provider Attestation/Addendum I have discussed and was present for the essential components of the history, physical examination, diagnosis, and treatment plan with the resident. I agree with the patient's care as documented by the resident and amended herein by me. Jovanny Nassar DO. Although this document has been carefully reviewed, there may still be some phonetic and other typographical errors. These errors are purely grammatical due to imperfections in the software program and should not be construed in any way to compromise the substance of the patient's medical care during this visit.
[2024-06-06] MEDS: BENZONATATE 100 MG CAPSULE 200 MG PO (21:19)
[2024-06-06] MEDS: HEPARIN SOD INJ 5000 UNIT/ML VIAL SC (21:19)
[2024-06-06] MEDS: POTASSIUM CHLORIDE 20 mEq TABCR 40 MEQ PO (21:19)
--- NOTE | 2024-06-06 23:22 | PC.NURSE ---
Dr Vargas notified of pt fever 101.8, pt received additional 1x tylenol at 1900, dr stated it is okay to give standing PRN order right now and reevaluate temp.
[2024-06-07] VITALS (11 sets, daily range): BP systolic 142–156; BP diastolic 84–97; PULSE 90–115; RESP 18–97; TEMP 36.3–37.9; O2SAT 95–98
[2024-06-07] MEDS: ALBUTEROL/IPRATROPIUM (Duoneb) RT SOL 3 ML NEBU INH ×2 (01:07→15:57)
[2024-06-07] MEDS: BENZONATATE 100 MG CAPSULE 200 MG PO ×3 (05:16→21:27)
[2024-06-07] MEDS: ACETAMINOPHEN 325 MG TABLET 650 MG PO ×2 (05:49→13:19)
[2024-06-07 06:42] LABS: Basophils % (Auto) 0 % (0-2.5); Eosinophils # (Auto) 0.1 Thou/mm3 (0.0-0.5); Eosinophils % (Auto) 1 % (0-10); Hematocrit 35.6 % (41.0-53.0); Hemoglobin 11.8 g/dL (13.5-16.0); Immature Granulocytes % (Auto) 1 % (0-0); Immature Granulocytes Auto 0.06 Thou/mm3 (0.00-0.00); Lymphocytes # (Auto) 1.5 Thou/mm3 (1.0-4.8); Lymphocytes % (Auto) 13 % (10-50); Mean Corpuscular HGB Conc 33.1 g/dl (31.0-37.0); Mean Corpuscular Hemoglobin 29.4 pg (25.0-35.0); Mean Corpuscular Volume 89 fL (80-100); Monocytes # (Auto) 1.1 Thou/mm3 (0.0-0.8); Monocytes % (Auto) 10 % (0-12); Neutrophils # (Auto) 8.4 Thou/mm3 (1.8-7.7); Neutrophils % (Auto) 75 % (37-80); Nucleated Red Blood Cell % 0 /100 WBC (0); Platelet Count 369 Thou/mm3 (140-440); RDW Standard Deviation 42.3 fL (35.1-43.9); Red Blood Count 4.01 Miln/mm3 (4.50-5.90); White Blood Count 11.2 Thou/mm3 (3.8-10.6)
[2024-06-07 06:54] LABS: INR 1.2 (0.9-1.3); Prothrombin Time 12.7 Seconds (9.0-12.2)
[2024-06-07 07:03] LABS: Alanine Aminotransferase 25 U/L (10-49); Albumin/Globulin Ratio 1.3 (1.2-2.2); Alkaline Phosphatase 87 U/L (46-116); Anion Gap 10 (7-16); Aspartate Amino Transferase 25 U/L (0-34); BUN/Creatinine Ratio 9 Ratio (12-20); Bilirubin,Total 0.3 mg/dL (0.3-1.2); Blood Urea Nitrogen 6 mg/dL (9-23); Calcium 8.6 mg/dL (8.3-10.6); Calcium (Corrected) 8.6 mg/dL (8.5-10.1); Carbon Dioxide 24.3 mMol/L (20.0-31.0); Chloride 103 mMol/L (98-107); Creatinine (Component) 0.7 mg/dL (0.6-1.3); Estimated Creatinine Clearance 175.6 mL/min (>60); Glucose 106 mg/dL (74-106); Osmolality,Calculated 271 (275-295); Potassium 3.6 mMol/L (3.4-5.1); Sodium 137 mMol/L (136-145); eGFR > 60 See Note
[2024-06-07 09:15] LABS: Iron 19 mcg/dL (65-175); Percent Iron Saturation 10 % (20-55); Total Iron Binding Capacity 177 mcg/dL (250-425); Unsaturated Iron Binding 158 (225-295)
[2024-06-07] MEDS: HEPARIN SOD INJ 5000 UNIT/ML VIAL SC ×2 (09:24→20:43)
[2024-06-07] MEDS: CEFEPIME INJ 1 GM in SODIUM CHLORIDE 0.9% (P) 50 ML IV ×2 (09:25→20:42)
[2024-06-07] MEDS: VANCOMYCIN/NS 1 GM IVPB 200 ML IV ×3 (10:36→21:27)
--- NOTE | 2024-06-07 12:33 | PC.SS ---
Naresh Louis is a 34-year-old male admitted to [facility] for PNA. SS conducted bedside contact with the patient to complete initial assessment and to discuss discharge planning. Patient confirmed demographic information. Patient identifies his Meaghan Luois [phone] as his surrogate decision maker. Patient resides at home wth and children. Pt states he is typically able to complete all ADL?s independently, no need for any source of DME. Pts PCP is Dr. Alejandro (last visit about 3 months ago) and pharmacy of choice is [facility] on [address]. DC option discussed and pt wishes to return home. Pts family will provide transportation upon DC. No further intervention required at this time, manager social work would be available to address any further concerns.
--- NOTE | 2024-06-07 14:20 | PD.RESPRO ---
Documentation for date of: 06/07/24 Subjective Subjective Interval history: Patient was seen and examined at bedside. No acute events overnight. Patient is having improvement in symptoms with less cough and no shortness of breath. States that he is feeling better. The patient was started on 2 L nasal cannula saturating at 95%. On further questioning he stated that there is a history of obstructive sleep apnea and patient uses CPAP at night. Vitals significant for blood pressure 142/88. CBC showed downtrending WBC to 11.2, hemoglobin 11.8, potassium 3.6 and repleted with 40 mill equivalent. Iron deficiency panel workup pending Sputum culture, blood culture still pending Continue with cefepime and vancomycin covering for possible HAP. ?No further complaints at this time. Review of systems otherwise negative except what is mentioned above. Exam Vital Signs Temp Pulse Resp BP Pulse Ox O2 Del Method O2 Flow Rate 98.8 F 95 18 156/97 H 95 Oxy Mask 2 06/07/24 12:00 06/07/24 12:00 06/07/24 12:00 06/07/24 12:00 06/07/24 12:00 06/07/24 12:00 06/07/24 12:00 Narrative Exam General: Alert and oriented x3. No acute distress, cooperative HEENT: Atraumatic, normocephalic. No JVD noted. Mucosa moist. Cardiovascular: Normal S1 and S2. Regular rate and rhythm. No pitting edema Respiratory: Lungs are clear to auscultation bilaterally except for wheezing auscultated in LLL. Abdomen: Soft, nontender, not distended, normal bowel sounds. Skin: Warm to touch, dry, no rashes noted Musculoskeletal: No gross injuries. Able to move all 4 extremities. Neuro: Alert and oriented x3. No focal neuro deficits. Psych: Normal affect and mood Constitutional Comments: General: Alert and oriented x3. No acute distress, cooperative HEENT: Atraumatic, normocephalic. No JVD noted. Mucosa moist. Cardiovascular: Normal S1 and S2. Regular rate and rhythm. No pitting edema Respiratory: Lungs are clear to auscultation bilaterally except for wheezing auscultated in LLL. Abdomen: Soft, nontender, not distended, normal bowel sounds. Skin: Warm to touch, dry, no rashes noted Musculoskeletal: No gross injuries. Able to move all 4 extremities. Neuro: Alert and oriented x3. No focal neuro deficits. Psych: Normal affect and mood Objective Labs 06/07/24 05:03 06/07/24 05:03 Labs: Laboratory Results - last 24 hr 06/06/24 06/06/24 06/07/24 13:59 15:30 05:03 WBC 11.2 H RBC 4.01 L Hgb 11.8 L Hct 35.6 L MCV 89 MCH 29.4 MCHC 33.1 RDW Std Deviation 42.3 Plt Count 369 D Neut % (Auto) 75 Lymph % (Auto) 13 [place] % (Auto) 10 Eos % (Auto) 1 Baso % (Auto) 0 Neut # (Auto) 8.4 H Lymph # (Auto) 1.5 [place] # (Auto) 1.1 H Eos # (Auto) 0.1 Baso # (Auto) 0.0 Immature Gran # (Auto) 0.06 H Absolute Nucleated RBC 0.00 Immature Gran % 1 H Nucleated RBC % 0 PT 13.2 H 12.7 H INR 1.2 1.2 APTT 33.9 Sodium 137 137 Potassium 3.4 3.6 Chloride 105 103 Carbon Dioxide 24.2 24.3 Anion Gap 8 10 BUN 8 L 6 L Creatinine 0.8 0.7 Estim Creat Clear Calc 156.2 175.6 eGFR > 60 > 60 BUN/Creatinine Ratio 10 L 9 L Glucose 111 H 106 Calculated Osmolality 273 L 271 L Calcium 9.0 8.6 Corrected Calcium 9.0 8.6 Magnesium 2.0 Iron 19 L TIBC 177 L Iron Saturation 10 L Unsat Iron Binding 158 L Total Bilirubin 0.4 0.3 AST 18 25 ALT 21 25 Alkaline Phosphatase 87 87 Troponin I < 0.002 B-Natriuretic Peptide 26 Total Protein 7.5 7.0 Albumin 4.0 4.0 Globulin 3.5 3.0 Albumin/Globulin Ratio 1.1 L 1.3 Procalcitonin 0.47 HIV 1&2 Antibody Rapid Non-Reactive Quality Measures Quality Measures none Assessment & Plan Assessment Current Active Medications: Generic Name Dose Route Start Last Admin Trade Name Freq PRN Reason Stop Dose Admin Acetaminophen 650 mg 06/06/24 16:28 06/07/24 13:19 Acetaminophen 325 Mg Tablet PO 07/06/24 16:27 650 mg Q6H PRN Administration Fever >100.3 or pain Albuterol/Ipratropium 3 ml 06/06/24 16:44 06/07/24 01:07 Albuterol/Ipratropium (Duoneb) Rt Veena 3 Ml Nebu INH 07/06/24 18:59 3 ml Q6HRRT PRN Administration SHORTNESS OF BREATH Benzonatate 200 mg 06/06/24 22:00 06/07/24 05:16 Benzonatate 100 Mg Capsule PO 07/06/24 21:59 200 mg TID LONNIE Administration Protocol Heparin Sodium (Porcine) 5,000 unit 06/06/24 21:00 06/07/24 09:24 Heparin Sod Inj 5000 Unit/Ml Vial SC 06/20/24 20:59 5,000 unit Q12HR LONINE Administration Cefepime HCl 1 gm/ Sodium 50 mls @ 100 mls/hr 06/06/24 16:40 06/07/24 09:25 Chloride IV 06/13/24 16:39 100 mls/hr Q12HR LONNIE Administration Vancomycin/Sodium Chloride 200 mls @ 120 mls/hr 06/07/24 09:00 06/07/24 10:36 Vancomycin/Ns 1 Gm Ivpb IV 06/14/24 08:59 120 mls/hr Q8HR LONNIE Administration Ondansetron HCl 4 mg 06/06/24 16:28 Ondansetron Inj 2 Mg/Ml Inj 2 Ml IV 07/06/24 16:27 Q6H PRN NAUSEA OR VOMITING Protocol Pharmacy Consult 1 each 06/06/24 16:45 Vancomycin Pharmacy To Dose 1 Each Each IV 07/06/24 16:44 QDAY PRN CONSULT Plan Naresh Louis is 34 yr male with no significant past medical history who was presented to the ED today due to worsening shortness of breath and cough. Patient was recently discharged about 1 week ago after being treated for community-acquired pneumonia. Patient states that he completed his course of azithromycin last week. However, he is now experiencing worsening symptoms. Having difficulty in speaking because of the dry cough, difficulty in daily activities which is worsening with shortness of breath, no chest pain, no fever, no recent travel, no known sick contacts. Patient denies having any concerning cardiac symptoms such as palpitations, shortness of breath, orthopnea, paroxysmal nocturnal dyspnea, lower extremity edema or any new dizziness. PCP Dr. Alejandro had no availability to schedule patient for follow up. Patient admitted for sepsis 2/2 HAP vs CAP. #Sepsis 2/2 HAP vs CAP SIRS 2/4--tachy + mild leukocytosis WBC 12.3 Previous admission patient was treated for community-acquired pneumonia and discharged with azithromycin course completion last week. Readmission now due to worsening symptoms and chest x-ray showing worsening left-sided pneumonia. Possibility of hospital-acquired pneumonia organisms and MRSA vs MSSA vs Pseudomonas. Possibility community-acquired pneumonia with strep pneumo vs haemophilus influenza. Atypicals Mycoplasma, legionella, Virus. Previous TB and cocci are negative. Received 1 L bolus normal saline in ED -cefepime q12hr -Vancomycin -DuoNeb PRN -oxygen PRN -Tessalon pearls 200 PO TID -sputum culture pending -blood culture pending -MRSA nasal screen pending -HIV screen negative #History of ZEYNEP Patient uses CPAP at night -CPAP during admission #Tachycardia -monitoring in setting of sepsis. 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 Nassar and Dr. Hasmukh Amato, PGY-1 Attending Provider Attestation/Addendum I have discussed and was present for the essential components of the history, physical examination, diagnosis, and treatment plan with the resident. I agree with the patient's care as documented by the resident and amended herein by me. Jovanny Nassar, DO. Patient seen and evaluated this AM, in short patient admitted for recurrent left-sided pneumonia, failed outpatient therapy, recent discharge on 05/29. Patient started on cefepime and vancomycin, significant improvement today, possibly can to consider discharge tomorrow on 06/08 if continued improvement Although this document has been carefully reviewed, there may still be some phonetic and other typographical errors. These errors are purely grammatical due to imperfections in the software program and should not be construed in any way to compromise the substance of the patient's medical care during this visit.
[2024-06-07 14:39] LABS: Total Iron Binding Capacity 176 mcg/dL (250-425)
[2024-06-07 14:51] LABS: Iron 19 mcg/dL (65-175); Percent Iron Saturation 10 % (20-55); Unsaturated Iron Binding 157 (225-295)
--- NOTE | 2024-06-07 14:57 | PC.SS ---
Rounding: Pt receiving IV ABX, poss DC 06/08
[2024-06-08] VITALS (9 sets, daily range): BP systolic 123–145; BP diastolic 80–91; PULSE 90–101; RESP 18–26; TEMP 36.3–37.4; O2SAT 91–96
[2024-06-08] MEDS: BENZONATATE 100 MG CAPSULE 200 MG PO (05:57)
[2024-06-08 06:12] LABS: Basophils # (Auto) 0.1 Thou/mm3 (0.0-0.2); Basophils % (Auto) 1 % (0-2.5); Eosinophils # (Auto) 0.3 Thou/mm3 (0.0-0.5); Eosinophils % (Auto) 3 % (0-10); Hematocrit 36.1 % (41.0-53.0); Immature Granulocytes % (Auto) 1 % (0-0); Immature Granulocytes Auto 0.09 Thou/mm3 (0.00-0.00); Lymphocytes # (Auto) 1.6 Thou/mm3 (1.0-4.8); Lymphocytes % (Auto) 17 % (10-50); Mean Corpuscular HGB Conc 33.2 g/dl (31.0-37.0); Mean Corpuscular Hemoglobin 29.5 pg (25.0-35.0); Mean Corpuscular Volume 89 fL (80-100); Monocytes # (Auto) 1.1 Thou/mm3 (0.0-0.8); Monocytes % (Auto) 12 % (0-12); Neutrophils # (Auto) 6.2 Thou/mm3 (1.8-7.7); Neutrophils % (Auto) 66 % (37-80); Nucleated Red Blood Cell % 0 /100 WBC (0); Platelet Count 334 Thou/mm3 (140-440); RDW Standard Deviation 42.5 fL (35.1-43.9); Red Blood Count 4.07 Miln/mm3 (4.50-5.90); White Blood Count 9.4 Thou/mm3 (3.8-10.6)
[2024-06-08 06:53] LABS: Alanine Aminotransferase 31 U/L (10-49); Albumin, Serum 3.8 gm/dL (3.5-5.0); Albumin/Globulin Ratio 1.3 (1.2-2.2); Alkaline Phosphatase 75 U/L (46-116); Anion Gap 8 (7-16); Aspartate Amino Transferase 28 U/L (0-34); BUN/Creatinine Ratio 10 Ratio (12-20); Bilirubin,Total 0.3 mg/dL (0.3-1.2); Blood Urea Nitrogen 7 mg/dL (9-23); Calcium 8.6 mg/dL (8.3-10.6); Calcium (Corrected) 8.8 mg/dL (8.5-10.1); Chloride 102 mMol/L (98-107); Creatinine (Component) 0.7 mg/dL (0.6-1.3); Estimated Creatinine Clearance 175.6 mL/min (>60); Glucose 108 mg/dL (74-106); Osmolality,Calculated 274 (275-295); Potassium 3.9 mMol/L (3.4-5.1); Sodium 138 mMol/L (136-145); Total Protein 6.8 gm/dL (5.7-8.2); Vancomycin,Trough 5.3 mcg/mL (5.0-10.0); eGFR > 60 See Note
[2024-06-08] MEDS: VANCOMYCIN/NS 1 GM IVPB 200 ML IV (07:02)
[2024-06-08] MEDS: HEPARIN SOD INJ 5000 UNIT/ML VIAL SC ×2 (08:31→20:02)
[2024-06-08] MEDS: CEFEPIME INJ 1 GM in SODIUM CHLORIDE 0.9% (P) 50 ML IV (09:09)
[2024-06-08 11:31] LABS: Ferritin 430 ng/mL (10.5-307.3)
[2024-06-08] MEDS: guaiFENesin/DM TABLET 1 EACH PO ×2 (14:08→20:02)
[2024-06-08 14:44] LABS: Cocci Serology, IgM Positive (Negative)
[2024-06-08 14:46] LABS: Cocid Sro, CF/ID (UCD) NO CHG* See Sep Rpt
--- NOTE | 2024-06-08 16:20 | PC.SS ---
Rounding: pending cocci results
--- NOTE | 2024-06-08 16:31 | PD.RESPRO ---
Documentation for date of: 06/08/24 Subjective Subjective Interval history: Patient was seen and examined with his by bedside. No acute overnight events and denied further febrile episodes. Stated that he is having cough with yellowish sputum. Vitals are stable, on oxygen through oxymask 2 L/min. Stated that he is using CPAP at night for his obstructive sleep apnea. Labs showed mild anemia. IgM antibodies for cocci tested positive and patient was started on fluconazole. Exam Vital Signs Temp Pulse Resp BP Pulse Ox O2 Del Method O2 Flow Rate 97.4 F 92 18 143/89 H 91 L Room Air 2 06/08/24 15:23 06/08/24 15:23 06/08/24 15:23 06/08/24 15:23 06/08/24 15:23 06/08/24 15:23 06/08/24 07:32 Narrative Exam General: Awake and in no acute distress. On oxygen through nasal cannula HEENT: Normocephalic, atraumatic, mucous membranes moist. Heart: Regular rate and rhythm, no murmurs. Lungs: Clear to auscultation with no wheezing. Fine inspiratory crackles are heard on the posterior basal areas of left lung Abdomen: Soft, nondistended, nontender, positive bowel sounds. ?No guarding or rebound tenderness. Neurologic: Alert and oriented x3, no gross neurological deficit, and patient able to move all 4 extremities. Extremities: No edema. Skin: No rash or ecchymoses. Objective Labs 06/09/24 05:11 06/09/24 05:11 Labs: Laboratory Results - last 24 hr 06/08/24 06/08/24 05:33 12:07 WBC 9.4 RBC 4.07 L Hgb 12.0 L Hct 36.1 L MCV 89 MCH 29.5 MCHC 33.2 RDW Std Deviation 42.5 Plt Count 334 D Neut % (Auto) 66 Lymph % (Auto) 17 [place] % (Auto) 12 Eos % (Auto) 3 Baso % (Auto) 1 Neut # (Auto) 6.2 Lymph # (Auto) 1.6 [place] # (Auto) 1.1 H Eos # (Auto) 0.3 Baso # (Auto) 0.1 Immature Gran # (Auto) 0.09 H Absolute Nucleated RBC 0.00 Immature Gran % 1 H Nucleated RBC % 0 Sodium 138 Potassium 3.9 Chloride 102 Carbon Dioxide 28.0 Anion Gap 8 BUN 7 L Creatinine 0.7 Estim Creat Clear Calc 175.6 eGFR > 60 BUN/Creatinine Ratio 10 L Glucose 108 H Calculated Osmolality 274 L Calcium 8.6 Corrected Calcium 8.8 Ferritin 430 H Total Bilirubin 0.3 AST 28 ALT 31 Alkaline Phosphatase 75 Total Protein 6.8 Albumin 3.8 Globulin 3.0 Albumin/Globulin Ratio 1.3 Vancomycin Trough 5.3 Coccidioides IgM Ab Positive A Quality Measures Quality Measures none Assessment & Plan Assessment Current Active Medications: Generic Name Dose Route Start Last Admin Trade Name Freq PRN Reason Stop Dose Admin Acetaminophen 650 mg 06/06/24 16:28 06/07/24 13:19 Acetaminophen 325 Mg Tablet PO 07/06/24 16:27 650 mg Q6H PRN Administration Fever >100.3 or pain Albuterol/Ipratropium 3 ml 06/06/24 16:44 06/07/24 15:57 Albuterol/Ipratropium (Duoneb) Rt Veena 3 Ml Nebu INH 07/06/24 18:59 3 ml Q6HRRT PRN Administration SHORTNESS OF BREATH Guaifenesin/Dextromethorphan 1 each 06/08/24 11:15 06/08/24 14:08 Guaifenesin/Dm Tablet PO 07/08/24 11:14 1 each BID LONNIE Administration Heparin Sodium (Porcine) 5,000 unit 06/06/24 21:00 06/08/24 08:31 Heparin Sod Inj 5000 Unit/Ml Vial SC 06/20/24 20:59 5,000 unit Q12HR LONNIE Administration Cefepime HCl 1 gm/ Sodium 50 mls @ 100 mls/hr 06/06/24 16:40 06/08/24 09:09 Chloride IV 06/13/24 16:39 100 mls/hr Q12HR LONNIE Administration Ondansetron HCl 4 mg 06/06/24 16:28 Ondansetron Inj 2 Mg/Ml Inj 2 Ml IV 07/06/24 16:27 Q6H PRN NAUSEA OR VOMITING Protocol Plan Naresh Louis is 34 yr male with no significant past medical history who was presented to the ED today due to worsening shortness of breath and cough. Patient was recently discharged about 1 week ago after being treated for community-acquired pneumonia. Patient states that he completed his course of azithromycin last week. However, he is now experiencing worsening symptoms. Having difficulty in speaking because of the dry cough, difficulty in daily activities which is worsening with shortness of breath, no chest pain, no fever, no recent travel, no known sick contacts. Patient denies having any concerning cardiac symptoms such as palpitations, shortness of breath, orthopnea, paroxysmal nocturnal dyspnea, lower extremity edema or any new dizziness. PCP Dr. Alejandro had no availability to schedule patient for follow up. Patient admitted for sepsis 2/2 HAP vs CAP. # Cocci pneumonia SIRS 2/--tachy + mild leukocytosis WBC 12.3 Previous admission patient was treated for community-acquired pneumonia and discharged with azithromycin course completion last week. Readmission now due to worsening symptoms and chest x-ray showing worsening left-sided pneumonia. Possibility of hospital-acquired pneumonia organisms and MRSA vs MSSA vs Pseudomonas. Possibility community-acquired pneumonia with strep pneumo vs haemophilus influenza. Atypicals Mycoplasma, legionella, Virus. Previous TB and cocci are negative. Received 1 L bolus normal saline in ED Repeat cocci tested on 06/08/2024 tested positive for IgM Started on fluconazole 400 Mg p.o. daily -DuoNeb PRN -oxygen PRN -Tessalon pearls 200 PO TID -sputum culture pending -blood culture pending -MRSA nasal screen pending -HIV screen negative #History of ZEYNEP Patient uses CPAP at night -CPAP during admission #Tachycardia -monitoring in setting of sepsis. 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 Ramiro Melchor, PGY1 Attending Provider Attestation/Addendum Fely, Brittany Rubio DO, attest that I was physically present for the yates portions of the service and evaluated the patient with the resident and I reviewed and discussed the case with the resident and agree with the resident's findings and plans of care as documented above Patient seen and eval this a.m. Patient is currently on room air, but desaturated to 86% on exertion reportedly. He continues to have productive cough. He reports some shortness of breath with ambulation to the bathroom at times. Patient has been wearing 2 L nasal cannula at night since he wears a CPAP at night. Will order the nocturnal CPAP. Have patient do a 6-minute walk test. Patient is very concerned about nodules noted on the CAT scan. Explained to patient that he will need a repeat CAT scan in 6 to 8 weeks after resolution of his pneumonia and acute illness. Cocci IgM and IgG were repeated as they were negative about 2 weeks ago. May have been due to new infection and falsely negative. 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 Will start on fluconazole. Anticipate discharge within the next 24 hours..
[2024-06-08] MEDS: FLUCONAZOLE 100 MG TABLET 400 MG PO (18:18)
[2024-06-09] VITALS (7 sets, daily range): BP systolic 134–147; BP diastolic 82–91; PULSE 86–94; RESP 17–94; TEMP 36.4–36.7; O2SAT 93–95
[2024-06-09 06:01] LABS: Basophils % (Auto) 0 % (0-2.5); Eosinophils # (Auto) 0.4 Thou/mm3 (0.0-0.5); Eosinophils % (Auto) 4 % (0-10); Hematocrit 36.2 % (41.0-53.0); Hemoglobin 12.1 g/dL (13.5-16.0); Immature Granulocytes % (Auto) 1 % (0-0); Immature Granulocytes Auto 0.13 Thou/mm3 (0.00-0.00); Lymphocytes # (Auto) 1.6 Thou/mm3 (1.0-4.8); Lymphocytes % (Auto) 16 % (10-50); Mean Corpuscular HGB Conc 33.4 g/dl (31.0-37.0); Mean Corpuscular Hemoglobin 29.6 pg (25.0-35.0); Mean Corpuscular Volume 89 fL (80-100); Monocytes # (Auto) 1.2 Thou/mm3 (0.0-0.8); Monocytes % (Auto) 11 % (0-12); Neutrophils # (Auto) 7.1 Thou/mm3 (1.8-7.7); Neutrophils % (Auto) 68 % (37-80); Nucleated Red Blood Cell % 0 /100 WBC (0); Platelet Count 329 Thou/mm3 (140-440); RDW Standard Deviation 41.7 fL (35.1-43.9); Red Blood Count 4.09 Miln/mm3 (4.50-5.90); White Blood Count 10.4 Thou/mm3 (3.8-10.6)
[2024-06-09 06:24] LABS: Alanine Aminotransferase 73 U/L (10-49); Albumin/Globulin Ratio 1.2 (1.2-2.2); Alkaline Phosphatase 74 U/L (46-116); Anion Gap 9 (7-16); Aspartate Amino Transferase 87 U/L (0-34); BUN/Creatinine Ratio 11 Ratio (12-20); Bilirubin,Total 0.3 mg/dL (0.3-1.2); Blood Urea Nitrogen 9 mg/dL (9-23); Calcium 8.8 mg/dL (8.3-10.6); Calcium (Corrected) 8.8 mg/dL (8.5-10.1); Carbon Dioxide 25.6 mMol/L (20.0-31.0); Chloride 102 mMol/L (98-107); Creatinine (Component) 0.8 mg/dL (0.6-1.3); Estimated Creatinine Clearance 153.7 mL/min (>60); Globulin 3.3 gm/dL (2.3-3.5); Glucose 108 mg/dL (74-106); Osmolality,Calculated 273 (275-295); Potassium 3.9 mMol/L (3.4-5.1); Sodium 137 mMol/L (136-145); Total Protein 7.3 gm/dL (5.7-8.2); eGFR > 60 See Note
[2024-06-09] MEDS: FLUCONAZOLE 100 MG TABLET 400 MG PO (08:39)
[2024-06-09] MEDS: guaiFENesin/DM TABLET 1 EACH PO (08:40)
[2024-06-09] MEDS: HEPARIN SOD INJ 5000 UNIT/ML VIAL SC (08:49)
[2024-06-09] MEDS: PROMETHAZINE/DM SYRUP 5 ML DOSE 10 ML PO (13:10)
--- NOTE | 2024-06-09 13:15 | PC.NURSE ---
6 Minute walk test completed per physician order. Patient ambulated around unit without difficult. No acute sob noted. Patient pulse ox sustained between 94-96% during ambulation. Upon completion, patient back to bed, pulse ox 94% w/o sob. Patient tolerating room air for last 2 hours. Patient informed of d/c orders and awaiting ride at this time. Patient reports his ride should be here approx 1500. Will continue to monitor.
--- NOTE | 2024-06-09 14:44 | ESDS_ITS ---
<Statement entered by Brittany Rubio DO - 06/10/24 09:40> I, Brittany Rubio DO, attest that I was physically present for the yates portions of the service and evaluated the patient with the resident and I reviewed and discussed the case with the resident and agree with the resident's findings and plans of care as documented above <Statement entered by Orlando Briggs MD - 06/10/24 07:58> Patient was examined with the team including attending physician. Note reviewed, I agree with the discharge plan as documented. - Orlando Briggs MD, PGY 2 Planned Discharge Date 06/09/24 DS: Providers Provider Date of admission: 06/06/24 16:28 Primary care physician: Thomas Alejandro MD Admitting Provider: Eric Nassar DO Attending Provider on Admission: Eric Nassar DO Attending Provider on DC: Russ Melchor MD Discharging Provider: Russ Melchor MD DS: Diagnosis Problem List Completed Was Problem List Reviewed/Reconciled?: Yes Hospital Course Hospital Course Hospital course: # Pulmonary Coccidiomycosis # Obstructive sleep apnea Naresh Louis is 34 yr male with past medical history of obstructive sleep apnea using CPAP at night at home, with recent admission on 05/26/2024 for pneumonia and discharged on antibiotics presented to the hospital with complaints of worsening shortness of breath and cough. CBC and CMP are within normal limits. Chest x-ray showed worsening pneumonia. Cocci done during admission on 05/26/2024 was tested negative. But repeat cocci done on 06/08/2024 tested positive for IgM and patient was started on oral fluconazole [address] done on 05/26/2024 showed 2.3 cm left upper lobe nodule and recommended to follow-up with his primary care provider for repeat scan after 6 weeks. Recommended to take rest for a week before he resumes work and work note is given to the patient with rest till 06/16/2024. Pt has been on room air for over 24hrs without any respiratory distress at rest and exertion. Patient was discharged to home with the following medications and recommendations. - F/u with PCP within 1 week of discharge - Repeat Chest CT within 6-8 weeks -Continue fluconazole 400 Mg for 12 weeks -Return to the ED if symptoms persist or worsen Patient plan of care was discussed with the attending physician, Dr. Rubio and senior resident Dr. Derrick Melchor, PGY1 Time Spent with Patient Time attestation: Total time spent providing and/or coordinating discharge services: Time spent: Greater than 30 minutes Exam Vital Signs Temp Pulse Resp BP Pulse Ox O2 Del Method O2 Flow Rate 97.6 F 90 20 147/91 H 94 L Room Air 2 06/09/24 11:31 06/09/24 14:03 06/09/24 14:03 06/09/24 11:31 06/09/24 14:03 06/09/24 11:31 06/09/24 06:00 FiO2 28 06/08/24 21:05 Narrative Exam General: Awake and in no acute distress. HEENT: Normocephalic, atraumatic, mucous membranes moist. Heart: Regular rate and rhythm, no murmurs. Lungs: Clear to auscultation with no wheezing. Left basal fine inspiratory crackles heard. Abdomen: Soft, nondistended, nontender, positive bowel sounds. ?No guarding or rebound tenderness. Neurologic: Alert and oriented x3, no gross neurological deficit, and patient able to move all 4 extremities. Extremities: No edema. Skin: No rash or ecchymoses. Discharge Plan Plan Patient Disposition: HOME (Self Care) Patient condition on transfer: Stable Prescriptions/Referrals Prescriptions/Med Rec: New fluconazole 200 mg tablet 400 mg PO QDAY 30 Days Qty: 60 0RF Referrals: Thomas Alejandro MD [Primary Care Provider] - Patient/Caregiver Discharge Instructions Discharge Activity: activity as tolerated and resume usual activities Other Discharge Activity Instructions:: - F/u with PCP within 1 week of discharge - Repeat Chest CT within 6-8 weeks Education Materials: Chest and Lung Problems, Understanding Coccidioidomycosis Print Language: Yakut Stand Alone Forms: [facility] Award Info., Patient Portal Info Letter, Work/Release Restrictions Discharge Order Discharge Orders: Discharge (Routine); Ordered 06/09/24 Ordered By: Orlando Briggs Quality Discharge Quality Measures VTE prophylaxis
== END 2024-06-09 15:36 | disposition home or self-care (01) | DRG 179 ==
LOC: SERX 16:11 → SERHOLD 16:36 → S3SX 17:46
PROVIDERS: Internal Medicine; Nurse Practitioner Family; Admitting Provider Student in an Organized Health Care Education/Training Program; Emergency Provider Emergency Medicine; PCP Internal Medicine; Visit Provider Student in an Organized Health Care Education/Training Program
DX: B38.2 Pulmonary coccidioidomycosis, unspecified (principal); F17.210 Nicotine dependence, cigarettes, uncomplicated; G47.33 Obstructive sleep apnea (adult) (pediatric); D64.9 Anemia, unspecified; E61.1 Iron deficiency
CPT/HCPCS: 36415; 71046; 80053; 80202; 82728; 83540; 83550; 83735; 83880; 84145; 84484; 85025; 85610; 85730; 86635; 86703; 87040; 87081; 87205; 87811; 93005; 94640; 94660; 94664; 96365; 96367; 99285; A9270; J0692; J0696; J1643; J3370; J7030; J7050; J1644

== ENCOUNTER → 2024-08-13 | Outpatient (CLI) | payer BC, SELFPAY ==
--- NOTE | 2024-08-13 | XR_ITS ---
Examination: PA lateral chest 2 views TECHNIQUE: Upright PA lateral chest 2 views Exam date and time: August 13, 2024 0822 hours Comparison June 06, 2024 INDICATIONS: Diagnosis coccidiomycosis with significant pneumonia in the left lung on chest film June 06, 2024 FINDINGS: Soft focus of parenchymal disease in the left upper lobe, measuring 23 mm Normal heart size Right lung clear IMPRESSION: Residual parenchymal disease in the left upper lobe Recommend continued chest imaging follow-up
[2024-08-13 09:18] LABS: Basophils % (Auto) 1 % (0-2.5); Eosinophils # (Auto) 0.1 Thou/mm3 (0.0-0.5); Eosinophils % (Auto) 2 % (0-10); Hematocrit 43.9 % (41.0-53.0); Hemoglobin 14.5 g/dL (13.5-16.0); Immature Granulocytes % (Auto) 0 % (0-0); Immature Granulocytes Auto 0.02 Thou/mm3 (0.00-0.00); Lymphocytes # (Auto) 2.1 Thou/mm3 (1.0-4.8); Lymphocytes % (Auto) 33 % (10-50); Mean Corpuscular Hemoglobin 29.1 pg (25.0-35.0); Mean Corpuscular Volume 88 fL (80-100); Monocytes # (Auto) 0.7 Thou/mm3 (0.0-0.8); Monocytes % (Auto) 11 % (0-12); Neutrophils # (Auto) 3.6 Thou/mm3 (1.8-7.7); Neutrophils % (Auto) 55 % (37-80); Nucleated Red Blood Cell % 0 /100 WBC (0); Platelet Count 256 Thou/mm3 (140-440); RDW Standard Deviation 45.2 fL (35.1-43.9); Red Blood Count 4.99 Miln/mm3 (4.50-5.90); White Blood Count 6.6 Thou/mm3 (3.8-10.6)
[2024-08-13 09:35] LABS: Glucose Estimated Average 97 mg/dL (80-131)
[2024-08-13 10:43] LABS: Alanine Aminotransferase 31 U/L (10-49); Albumin, Serum 4.7 gm/dL (3.5-5.0); Albumin/Globulin Ratio 1.4 (1.2-2.2); Alkaline Phosphatase 78 U/L (46-116); Anion Gap 8 (7-16); Aspartate Amino Transferase 28 U/L (0-34); BUN/Creatinine Ratio 14 Ratio (12-20); Bilirubin,Total 0.7 mg/dL (0.3-1.2); Blood Urea Nitrogen 11 mg/dL (9-23); Calcium 9.8 mg/dL (8.3-10.6); Calcium (Corrected) 9.8 mg/dL (8.5-10.1); Carbon Dioxide 27.7 mMol/L (20.0-31.0); Chloride 102 mMol/L (98-107); Cholesterol 180 mg/dL (132-200); Creatinine (Component) 0.8 mg/dL (0.6-1.3); Globulin 3.3 gm/dL (2.3-3.5); Glucose 96 mg/dL (74-106); HDL Cholesterol 60 mg/dL (40-60); LDL Cholesterol,Calculated 96 mg/dL (0-130); Osmolality,Calculated 275 (275-295); Potassium 4.1 mMol/L (3.4-5.1); Sodium 138 mMol/L (136-145); Triglycerides 120 mg/dL (30-150); eGFR > 60 See Note
[2024-08-13 11:03] LABS: Thyroid Stimulating Hormone 2.81 uIU/mL (0.55-4.78)
[2024-08-13 14:48] LABS: Cocci Serology, IgM Positive (Negative)
[2024-08-13 14:50] LABS: Cocid Sro, CF/ID (UCD) NO CHG* See Sep Rpt
[2024-08-13 23:54] LABS: Vitamin D 25 Hydroxy Total 15.2 ng/mL (7.3-40.2)
== END | disposition home or self-care (01) ==
LOC: CDIM 07:40 → COPL 08:27
PROVIDERS: PCP Internal Medicine; Referring Provider Internal Medicine; Visit Provider Radiology Diagnostic Radiology
DX: J98.4 Other disorders of lung (principal); Z00.00 Encounter for general adult medical examination without abnormal findings; E55.9 Vitamin D deficiency, unspecified
CPT/HCPCS: 36415; 71046; 80053; 80061; 82306; 83036; 84443; 85025; 86635

== ENCOUNTER → 2024-11-06 | Outpatient (CLI) | payer BC, SELFPAY ==
[2024-11-06 08:47] LABS: Coccid Serology, CF (UCD)* See Sep Rpt
--- NOTE | 2024-11-06 08:57 | XR_ITS ---
Examination: PA lateral chest 2 views TECHNIQUE: Upright PA lateral chest 2 views Exam date and time: November 06, 2024 1025 hours Comparison August 13, 2024 INDICATIONS: Diagnosis coccidiomycosis June 2024 FINDINGS: Again noted nodular parenchymal disease left apex Right lung clear Normal heart size IMPRESSION: Again noted nodular parenchymal disease left apex Suggest continued follow-up chest x-ray in one month
== END | disposition home or self-care (01) ==
LOC: COPL 08:34
PROVIDERS: PCP Internal Medicine; Referring Provider Internal Medicine; Visit Provider Radiology Diagnostic Radiology
DX: R91.1 Solitary pulmonary nodule (principal); B38.2 Pulmonary coccidioidomycosis, unspecified
CPT/HCPCS: 71046; 86171

== ENCOUNTER → 2025-04-16 | Outpatient (CLI) | payer BC, SELFPAY ==
[2025-04-16 14:48] LABS: Coccid Serology, CF (UCD)* See Sep Rpt
--- NOTE | 2025-04-16 16:00 | XR_ITS ---
Examination: CT chest, without intravenous contrast. Sagittal and coronal 2-D reconstructions. Exam date and time: April 16, 2025, 1433 hours INDICATIONS: Onset left-sided chest pain with breathing beginning 2023, 23 mm nodule with parenchymal disease in the left upper lobe on CT chest May 26, 2024 CTDI:vol (mGy) 18 DLP: (mGycm) 736 Technique: Multiple 3.0 mm axial sections of the chest to been obtained. Bone and lung density settings are obtained. Sagittal and coronal 2-D reconstructions have been obtained. Low dose protocols were performed. One or more of the following dose reduction techniques were used; automated exposure control, adjustment of the mA and/or KV according to patient size, use of iterative reconstruction technique. Findings: No thoracic aortic aneurysm dilatation Main pulmonary artery segments are enlarged 35 mm No paratracheal tracheobronchial or bronchopulmonary adenopathy Smaller focus of parenchymal disease in the left upper lobe anteriorly No interval pneumonia or pulmonary edema No visualized liver or splenic lesion No gallstones No pancreatic or adrenal mass The osseous structures are intact IMPRESSION: Pulmonary artery hypertension No mediastinal lymphadenopathy Smaller focus of parenchymal disease in the left upper lobe, recommend continued follow-up chest imaging to document clearing of this parenchymal disease
== END | disposition home or self-care (01) ==
LOC: CCTX 14:14 → COPL 14:38
PROVIDERS: PCP Physician Assistant; Referring Provider Physician Assistant; Visit Provider Radiology Diagnostic Radiology
DX: I27.0 Primary pulmonary hypertension (principal); J98.4 Other disorders of lung; Z86.2 Personal history of diseases of the blood and blood-forming organs and certain disorders involving the immune mechanism
CPT/HCPCS: 71250; 86171